=== PATIENT | female | born 1960 | race Caucasian/White ===

== ENCOUNTER 2020-03-10 00:38 | Emergency (ER) | payer OTHER ==
[2020-03-10 00:53] VITALS: BP 126/65; PULSE 90; TEMP 98.4; BMI 31.1
--- OUTSIDE RECORDS SUMMARY | 2020-03-10 01:09 | XMS ---
:1960 Author Organization [facility] Care Team Providers Name Role Phone JEB TENORIO Unavailable Unavailable Menla, Tod Unavailable Unavailable Menla, Tod Unavailable Unavailable Menla, Tod Unavailable Unavailable Menla, Tod Unavailable Unavailable Menla, Tod Unavailable Unavailable Menla, Tod Unavailable Unavailable Sergio Irvin DPM Unavailable Unavailable AurYoav jackson DPM Unavailable Unavailable AurYoav jackson DPM Unavailable Unavailable KARLA KHOURY Unavailable Unavailable ZUNASSIGNED Unavailable Unavailable MENLA TOD Unavailable Unavailable SOFIA Unavailable Unavailable Sofia Unavailable Unavailable Sofia Unavailable Unavailable Sofia Unavailable Unavailable Sofia Unavailable Unavailable ZUNASSIGNED@, Unavailable Unavailable Re-disclosure Warning The records that you are about to access may contain information from federally- assisted alcohol or drug abuse programs. If such information is present, then the following federally mandated warning applies: This information has been disclosed to you from records protected by federal confidentiality rules (42 CFR part 2). The federal rules prohibit you from making any further disclosure of this information unless further disclosure is expressly permitted by the written consent of the person to whom it pertains or as otherwise permitted by 42 CFR part 2. A general authorization for the release of medical or other information is NOT sufficient for this purpose. The Federal rules restrict any use of the information to criminally investigate or prosecute any alcohol or drug abuse patient.The records that you are about to access may contain highly sensitive health information, the redisclosure of which is protected by Article 27-F of the [facility] Public Health law. If you continue you may haveaccess to information: Regarding HIV / AIDS; Provided by facilities licensed or operated by the [facility] Office of Mental Health; or Provided by the [facility] Office for People With Developmental Disabilities. If such information is present, then the following [facility] mandated warning applies: This information has been disclosed to you from confidential records which are protected by state law. State law prohibits you from making any further disclosure of this information without the specific written consent of the person to whom it pertains, or as otherwise permitted by law. Any unauthorized further disclosure in violation of state law may result in a fine or custodial sentence or both. A general authorization for the release of medical or other information is NOT sufficient authorization for further disclosure. Allergies and Adverse Reactions Type Description Substance Reaction Status Data Source(s ) Drug allergy dulaglutide dulaglutide Active [facility] ([facility]) Family History Family Member Family Member Family Member Date of Description Data Source(s) Name Gender Status Status Unknown Female Problem 02/09/2015 [facility] ([facility] (finding) 12:00:00 AM [facility]) Unknown Female Problem 02/09/2015 [facility] ([facility] (finding) 12:00:00 [facility]) Encounters Encounter Providers Location Date Indications Data Source(s ) Outpatient Attender: 03/23/2020 [facility] DIANAIGNEDAdmi 10:13:00 Medical C enter tter: AM EDT ZUNASSIGNEDRefe rrer: [id number] ZUNASSIGNED@, Outpatient Admitter: 03/23/2020 [facility] [id number] 12:00:00 Medical Center ZASHLYSSIGNED@,Re AM EDT rene: [id number] ZUNASSIGNED@, Outpatient Attender: 03/09/2020 [facility] DAINAIGNEDAdmi 10:23:00 Medical C enter tter: AM EDT ZUNASSIGNEDRefe rrer: [id number] ZUNASSIGNED@, Outpatient Attender: TOD Mcqueen 03/09/2020 [facility] MENLESVIA 09:13:00 Medical Center MIKEAdmitter: AM EDT TOD MENLA MIKEReferrer: TOD WERNERLESVIA TOD Outpatient Admitter: 03/09/2020 [facility] [id number] 12:00:00 Medical Center ZUNASSIGNED@,Re AM EDT rene: [id number] ZUNASSIGNED@, Outpatient Attender: 03/07/2020 [facility] ZUNASSIGNEDAdmi 04:01:00 Medical C enter tter: PM EDT ZUNASSIGNEDRefe rrer: [id number] ZUNASSIGNED@, Outpatient Admitter: 03/07/2020 [facility] 12:00:00 Medical Center ZUNASSIGNED@,Re AM EDT rene: [id number] ZUNASSIGNED@, Outpatient Attender: TOD Mcqueen 02/24/2020 [facility] 09:34:00 [facility] MIKEAdmitter: AM EDT TOD Clemonsrer: TOD BARON OutpatientOFFICE/OUT [place]: [place] [address] [place] 02/24/2020 [facility] ([facility] PATIENT VISIT, EST Sofia 09:34:00 [facility] EDT - Center) 02/24/2020 09:34:00 AM EDT Outpatient Attender: 02/24/2020 [facility] ZUNASSIGNEDAdmi 09:32:00 Medical C enter tter: AM EDT ZUNASSIGNEDRefe rrer: [id number] ZUNASSIGNED@, Outpatient Admitter: 02/24/2020 [facility] 12:00:00 [facility] AlfredoUNASSIGNED@,Re AM EDT rene: [id number] ZUNASSIGNED@, Outpatient Attender: TOD Mcqueen 02/21/2020 [facility] 09:59:00 [facility] MIKEAdmitter: AM EDT TOD Huangferrer: TOD BARON OutpatientOFFICE/OUT Attender: [address] 02/21/2020 [facility] ([facility] PATIENT VISIT, EST Sofia 09:59:00 [facility] EDT - Center) 02/21/2020 09:59:00 AM EDT Outpatient Attender: 02/21/2020 [facility] ZUNASSIGNEDAdmi 09:30:00 Medical C enter tter: AM EDT ZUNASSIGNEDRefe rrer: [id number] ZUNASSIGNED@, Outpatient Admitter: 02/21/2020 [facility] [id number] 12:00:00 Medical Center ZUNASSIGNED@,Re AM EDT rene: [id number] ZUNASSIGNED@, Outpatient 02/17/2020 [facility] 11:45:00 Medical Center AM EDT Outpatient 02/17/2020 [facility] 12:00:00 Medical Center AM [place] [address] [place] 02/06/2020 [facility] 03:[facility]:00 [facility] PM EDT - Center) 02/06/2020 03:52:00 PM EDT Outpatient Attender: TOD Mcqueen 02/03/2020 [facility] phs MENLA 09:59:00 Medical Center MIKEAdmitter: AM EDT TOD Huangferrer: TOD BARON OutpatientWell Attender: [address] 02/03/2020 [facility] ([facility] Visit, Sofia 09:59:00 [facility] Est,40-64years AM EDT - Center) 02/03/2020 09:59:00 AM EDT Outpatient 02/03/2020 [facility] 09:27:00 Medical Center AM EDT Outpatient 02/03/2020 [facility] 12:00:00 Medical Center AM EDT Attender: Tod [address] Clinic 01/31/2020 [facility] ([facility]int Menla 04:18:00 [facility] PM EDT - Center) 01/31/2020 04:18:00 PM EDT Outpatient Attender: RUTH Mcqueen 01/17/2020 [facility] MEJIAAdmitter: 02:25:00 Medical Ce nter TOD ESTRELLA PM EDT MIKEReferrer: TOD BARON OutpatientOFFICE/OUT Attender: Ruth[address] 01/17/2020 [facility] ([facility] PATIENT VISIT, EST Sofia 02:25:00 [facility] EDT - Center) 01/17/2020 02:25:00 PM EDT Outpatient 01/17/2020 [facility] 11:34:00 Medical Center AM EDT Outpatient 01/17/2020 [facility] 12:00:00 Medical Center AM EDT Attender: Tod [address] Clinic 12/29/2019 [facility] ([facility]int Menla 01:45:00 [facility] PM EDT - Center) 12/29/2019 01:45:00 PM EDT Outpatient Attender: TOD Mcqeuen 10/27/2019 [facility] MENLA 03:18:00 [facility] MIKEAdmitter: PM EDT TOD Johnstonr: TOD BARON OutpatientOFFICE/OUT Attender: Ruth Alysia [facility] 10/27/2019 [facility] ([facility] PATIENT VISIT, EST Sofia 03:18:00 [facility] PM EDT - Center) 10/27/2019 03:18:00 PM EDT Outpatient 10/27/2019 [facility] 03:17:00 [facility] PM EDT Outpatient 10/27/2019 [facility] 12:00:00 [facility] AM EDT Outpatient 10/21/2019 [facility] 04:35:00 [facility] PM EDT Outpatient Attender: TOD Mcqueen 10/21/2019 [facility] MENLA 11:05:00 [facility] MIKEAdmitter: AM EDT TOD Johnstonr: TOD BARON OutpatientOFFICE/OUT Attender: [address] 10/21/2019 [facility] ([facility] PATIENT VISIT, EST Sofia 11:05:00 [facility] EDT - Center) 10/21/2019 11:05:00 AM EDT Outpatient 10/21/2019 [facility] 12:00:00 [facility] AM EDT Attender: Tod [facility] [facility] 10/19/2019 [facility] ([facility] Menla 02:48:00 [facility] PM EDT - Center) 10/19/2019 02:48:00 PM EDT Attender: [facility] 12:40:00 [facility] PM EDT - Center) 10/13/2019 12:40:00 PM EDT Attender: Tod [address] 09/26/2019 [facility] ([facility] Menla 03:31:00 [facility] PM EDT - Center) 09/26/2019 03:31:00 PM EDT Outpatient Attender: 09/01/2019 [id number] KARLA Mccauley 12:19:00 [facility] EFayeAdmitter: PM EDT [facility] KARLA KHOURY [id number] Outpatient Attender: TOD Mcqueen [facility]2019 [facility] ANDRADEEAdmitter: TOD 03:32:00 PM EDT edical Center SAMEER Johnstonr: TOD BARON OutpatientOFFICE/ Attender: Tod [facility] 08/29/2019 [facility] ([facility] OUTPATIENT VISIT, 03:32:00 PM EDT [facility] EST - 08/29/2019 Medical 03:32:00 PM EDT Center) Outpatient 08/29/2019 [facility] 03:29:00 PM EDT Medical C enter Outpatient 08/29/2019 [facility] 12:00:00 AM EDT Medical C enter [address] [address] [address] 08/17/2019 eCW1 ([facility] 12:00:00 AM EDT [facility] ) Outpatient Attender: TOD Mcqueen [facility] KHANdmitter: TOD 09:42:00 AM EDT edical [place] SAMEER Johnstonr: TOD BARON OutpatientOFFICE/ Attender: Ruth [address] 08/16/2019 [facility] ([facility] OUTPATIENT VISIT, Sofia 09:42:00 AM EDT [facility] EST - 08/16/2019 Medical 09:42:00 AM EDT Center) Outpatient 08/16/2019 [facility] 09:33:00 AM EDT Medical C enter Outpatient 08/16/2019 [facility] 12:00:00 AM EDT Medical C enter Outpatient Attender: RUTH Mcqueen 07/18/2019 [facility] PAOLAdmitter: RUTH 09:12:00 AM EST Medical Center MERISSAAReferrer: RUTH SOFIA OutpatientOFFICE/ Attender: Ruth [address] 07/18/2019 [facility] ([facility] OUTPATIENT VISIT, Sofia 09:12:00 AM EST [facility] EST - 07/18/2019 Medical 09:12:00 AM EST Center) Outpatient 07/18/2019 [facility] 09:10:00 AM EST Medical C enter Outpatient 07/18/2019 [facility] 09:09:00 AM EST Medical C enter Outpatient 07/18/2019 [facility] 12:00:00 AM EST Medical C enter Outpatient Attender: TOD Mcqueen 07/04/2019 Heike KHANdmitter: TOD 11:40:00 AM EST edical Center SAMEER Clemonsrer: TOD BARON OutpatientOFFICE/ Attender: Tod [facility] 07/04/2019 [facility] ([facility] OUTPATIENT VISIT, 11:40:00 AM EST [facility] EST - 07/04/2019 Medical 11:40:00 AM EST Center) Outpatient 07/04/2019 [facility] 09:06:00 AM EST Medical C enter Outpatient 07/04/2019 [facility] 12:00:00 AM EST Medical C enter Outpatient 06/08/2019 [facility] 03:12:00 PM EST Medical C enter Attender: Sergio [facility] 06/08/2019 [facility] Albaro DPM 08:33:00 AM EST Igor s - 06/08/2019 Medical 08:33:00 AM EST Center) Outpatient 06/08/2019 [facility] 12:00:00 AM EST Medical C enter Outpatient 05/30/2019 [facility] 10:07:00 AM EST Medical C enter Outpatient Attender: TOD Mcqueen 05/30/2019 Heike nita Cris MIKEAdmitter: TOD 09:21:00 AM EST edical Center SAMEER Clemonsrer: TOD BARON OutpatientOFFICE/ Attender: [facility] 05/30/2019 NE XT ([facility] OUTPATIENT VISIT, Sofia 09:21:00 AM EST [facility] EST - 05/30/2019 Medical 09:21:00 AM EST Center) Outpatient 05/30/2019 [facility] 12:00:00 AM EST Medical C enter Attender: Ruth [facility] 05/11/2019 [facility] ( [facility] 03:17:00 PM EST Cris - 05/11/2019 Medical 03:17:00 PM EST Center) Attender: Ruth [facility] 05/06/2019 [facility] ( [facility] 09:29:00 AM EST Cris - 05/06/2019 Medical 09:29:00 AM EST Center) Attender: Sergio [facility] 05/04/2019 [facility] (Chuck Vorao DPM 10:54:00 AM EST Igor s - 05/04/2019 Medical 10:54:00 AM EST Center) Outpatient Attender: JEB Mcqueen 05/02/2019 [facility] Mike ALVARADO 03:46:00 PM EST Medical C enter THEEANAdmitter: JEB RUSSReferrer: JEB RUSS Outpatient 04/29/2019 [facility] 09:45:00 AM EST Medical C enter Outpatient Attender: TOD Mcqueen 04/29/2019 Heike KHANdmitter: TOD 09:15:00 AM EST edical Center SAMEER Johnstonr: TOD BARON OutpatientOFFICE/ Attender: [place] [address] Clinic 04/29/2019 [facility] ([facility] OUTPATIENT VISIT, [facility] 09:15:00 AM EST [facility] EST - 04/29/2019 Medical 09:15:00 AM EST Center) Outpatient 04/29/2019 [facility] 12:00:00 AM EST Medical C enter Attender: [address] 04/28/2019 [facility] ( [facility] 06:18:00 PM EST [facility] - 04/28/2019 Medical 06:18:00 PM EST Center) Outpatient Attender: TOD Mcqueen 04/06/2019 Heike Villaritter: TOD 03:35:00 PM EST edical Center SAMEER Johnstonr: TOD BARON OutpatientOFFICE/ Attender: [address] 04/06/2019 [facility] ([facility] OUTPATIENT VISIT, [facility] 03:35:00 PM EST [facility] EST - 04/06/2019 Medical 03:35:00 PM EST Center) Outpatient 04/06/2019 [facility] 03:34:00 PM EST Medical C enter Outpatient 04/06/2019 [facility] 12:00:00 AM EST Medical C enter Outpatient 03/30/2019 [facility] 03:36:00 PM EST Medical C enter Outpatient Attender: TOD Mcqueen 03/30/2019 Heike KHANdmitter: TOD 08:51:00 AM EST edical Center SAMEER Hsu: TOD BARON OutpatientOFFICE/ Attender: [address] 03/30/2019 [facility] ([facility] OUTPATIENT VISIT, [facility] 08:51:00 AM EST [facility] EST - 03/30/2019 Medical 08:51:00 AM EST Center) Outpatient 03/30/2019 [facility] 12:00:00 AM EST Medical C enter Outpatient 03/28/2019 [facility] 11:27:00 AM EST Medical C enter Outpatient 03/28/2019 [facility] 12:00:00 AM EST Medical C enter Outpatient 02/23/2019 [facility] 02:38:00 PM EDT Medical C enter Outpatient Attender: TOD Mcqueen 02/23/2019 Heike KHANdmitter: TOD 10:30:00 AM EDT edical Center SAMEER Johnstonr: TOD BARON OutpatientOFFICE/ [place] [address] [place] 02/23/2019 [facility] ([facility] OUTPATIENT VISIT, Sofia 10:30:00 AM EDT [facility] EST - 02/23/2019 Medical 10:30:00 AM EDT Center) Outpatient 02/23/2019 [facility] 12:00:00 AM EDT Medical C enter Outpatient Attender: TOD Mcqueen 02/08/2019 Heike KHANdmitter: TOD 03:39:00 PM EDT edical [place] SAMEER Johnstonr: TOD BARON OutpatientOFFICE/ [place]: [place] [address] [place] 02/08/2019 [facility] ([facility] OUTPATIENT VISIT, Sofia 03:39:00 PM EDT [facility] EST - 02/08/2019 Medical 03:39:00 PM EDT Center) Outpatient 02/08/2019 [facility] 03:37:00 PM EDT Medical C enter Outpatient 02/08/2019 [facility] 12:00:00 AM EDT Medical C enter Immunizations Vaccine Date Status Description Data Source(s) As of January 1999, 10/27/2019 completed Hep B, adult, 3 dos e [facility] ([facility] a 2-dose hepatitis B 12:00:00 AM [facility] schedule for EDT Center) adolescents (11-15 year olds) was FDA approved for [employer]'s Recombivax HB adult formulation. Use code 43 for the 2-dose. This code should be used for any use of standard adult formulation of hepatitis B vaccine. Source: New Immunization Record As of January 1999, 05/30/2019 12:00:00 completed Hep B, adult , 3 [facility] ([facility] a 2-dose hepatitis B AM EST dose [facility] schedule for Center) adolescents (11-15 year olds) was FDA approved for [employer]ck's Recombivax HB adult formulation. Use code 43 for the 2-dose. This code should be used for any use of standard adult formulation of hepatitis B vaccine. Source: New Immunization Record As of January 1999, 04/29/2019 12:00:00 completed Hep B, adult , 3 [facility] ([facility] a 2-dose hepatitis B AM EST dose [facility] schedule for [place]) adolescents (11-15 year olds) was FDA approved for Merck's Recombivax HB adult formulation. Use code 43 for the 2-dose. This code should be used for any use of standard adult formulation of hepatitis B vaccine. Source: New Immunization Record New in 2011. 03/30/2019 12:00:00 completed Influenza, Injectable , [facility] ([facility] IIV4 AM EST Quadrivalent [facility]) Source: New Immunization Record Medications Medication Brand Start Product Dose Route Administrative Pharmacy [facility] Indications Reaction Description Data Name Date Form Instructions Instructions Source(s) Famotidine famoti .00 ORAL active take 1 N EXTGEN 40 MG Oral dine 2020 {tabl tablet by (Sa int Tablet 40 mg 12:00: et} oral route [facility] famotidine tablet 00 AM every day a t Medical 40 mg EDT bedtime Center) tablet 120 ACTUAT Dulera 2.00 RESPIR active 120 AC TUAT [facility] formoterol 100 2020 {puff ATORY formoterol ( [facility] fumarate mcg-5 12:00: } (INHAL fumarate [facility] 0.005 mcg/ac 00 AM ATION) 0.005 Medical MG/ACTUAT / tuatio EDT MG/ACTUAT / Center) mometasone n HFA mometasone furoate 0.1 aeroso furoate 0.1 MG/ACTUAT l MG/ACTUAT Metered inhale Metered Dose Dose r Inhaler Inhaler [Dulera] [Dulera] Dulera 100 mcg-5 mcg/actuati on HFA aerosol inhaler Albuterol 1 albute 02/20/ 0.5 RESPIR active inhal e 0.5 [facility] MG/ML rol 2020 mL ATORY milliliter (Saint Inhalant sulfat 12:00: (INHAL by Evgeny hs Solution e 00 AM ATION) nebulization Medical albuterol concen EDT route 4 Cente r) sulfate trate times every concentrate 2.5 day 2.5 mg/0.5 mg/0.5 mL solution mL for soluti nebulizatio on for n nebuli zation Steglatro ertugl ORAL active ertuglifl ozi [facility]EXT[facility] 15 mg iflozi 2019 {tabl n 15 MG Oral (Sa int tablet n 15 12:00: et} Tablet Cris MG 00 AM [Steglatro] Medical Oral EDT Center) Tablet Prednisone predni 02/20/ active take 2 N EXTGEN 20 MG Oral sone 2019 tablets for (S aint Tablet 20 mg 12:00: 4days Cris prednisone tablet 00 AM Medica l 20 mg EDT Center) tablet Guaifenesin Tussin ORAL active take 1 [facility]EXT[facility] 400 MG Oral 400 mg 2019 {tabl tablet by (Saint Tablet tablet 12:00: et} oral route [facility] Tussin 400 00 AM every 4 Medic al mg tablet EDT hours as Center ) needed [place] nebuli 02/20/ active use q4-q6hr [facility] Choice zer 2019 as needed (Saint Nebulizer and 12:00: Cris compre 00 AM Medical ssor EDT Center) Aerochamber inhale 02/20/ active use NE XTGEN Plus Z Stat r, 2020 [id number] (S aint spacer assist 12:00: with MDI as [facility] device 00 AM needed Medical s EDT Center) empaglifloz Jardia ORAL active empagli flozi NEXT[facility] in 25 MG nce 25 2019 {tabl n 25 MG Oral (Saint Oral Tablet mg 12:00: et} Tablet [facility] [Jardiance] tablet 00 AM [Jardiance ] Medical Jardiance EDT Center) 25 mg tablet sitagliptin Januvi ORAL active sitagli ptin [facility]EXTGEN 100 MG Oral a 100 2019 {tabl 100 MG Oral (Saint Tablet mg 12:00: et} Tablet Cris [Januvia] tablet 00 AM [Januvia] Or dical Januvia 100 EDT Center) mg tablet atorvastati atorva ORAL active take 1 [facility]EXTGEN n 40 MG statin 2020 {tabl tablet by (Ian nt Oral Tablet 40 mg 12:00: et} oral route Cris atorvastati tablet 00 AM every day Medical n 40 mg EDT Center) tablet Lisinopril lisino ORAL active take 1 N EXTGEN 5 MG Oral pril 5 2019 {tabl tablet by (S aint Tablet mg 12:00: et} oral route Evgeny hs lisinopril tablet 00 AM every day M edical 5 mg tablet EDT Center) Metformin metfor ORAL active take 1 NE XTGEN hydrochlori min 2019 {tabl tablet by (S aint de 1000 MG 1,000 12:00: et} oral route 2 Cris Oral Tablet mg 00 AM times every Medical metformin tablet EDT day with Cent er) 1,000 mg morning and tablet evening meals Levothyroxi Synthr ORAL active levothy roxin NEXTGEN ne Sodium oid 88 2019 {tabl e sodium (Sa int 0.088 MG mcg 12:00: et} 0.088 MG Evgeny hs Oral Tablet tablet 00 AM Oral Table t Medical [Synthroid] EDT [Synthroid] C enter) Synthroid 88 mcg tablet Aspirin 81 Aspir- 02/02/ active take 1 N EXTGEN MG Delayed 81 mg 2020 tablet by (Sa int Release tablet 12:00: oral route [facility] Oral Tablet ,delay 00 AM every day Medical Aspir-81 mg ed EDT Center) tablet,dahlia releas yed release e glimepiride glimep ORAL active take 1 [facility]EXTGEN 4 MG Oral iride 2019 {tabl tablet by (Sa int Tablet 4 mg 12:00: et} oral route Evgeny hs glimepiride tablet 00 AM every day Medical 4 mg tablet EDT Center) 200 ACTUAT Proven RESPIR active [id number] [facility]EXTGEN Albuterol til 2019 {puff ATORY 200 ACTUAT (S aint 0.09 HFA 90 12:00: } (INHAL albuterol [facility] MG/ACTUAT mcg/ac 00 AM ATION) 0.09 Medic al Metered tuatio EDT MG/ACTUAT Cente r) Dose n Metered Dose Inhaler aeroso Inhaler [Proventil] l [Proventil] Proventil inhale HFA 90 r mcg/actuati on aerosol inhaler 0.5 ML Trulic 02/02/ 0.50 SUBCUT complet 0.5 ML NE XTGEN dulaglutide ity 2020 mL ANEOUS ed dulaglutide (Saint 3 MG/ML 1.5 12:00: 3 MG/ML Cris Auto-Inject mg/0.5 00 AM Auto-Injec to Medical or mL EDT r Center) [Trulicity] subcut [Trulicity] Trulicity aneous 1.5 mg/0.5 pen mL inject subcutaneou or s pen injector Azithromyci azithr ORAL complet take 2 NEXTGEN n 500 MG omycin 2019 {tabl ed tablet by (Sa int Oral Tablet 500 mg 12:00: et} oral rout e Cris azithromyci tablet 00 AM every day Medical n 500 mg EDT for 3 days Cente r) tablet Prednisone predni 01/16/ complet take 2t bs [facility]EXT[facility] 20 MG Oral sone 2020 ed once a day (Sa int Tablet 20 mg 12:00: with food Evgeny hs prednisone tablet 00 AM Medica l 20 mg EDT Center) tablet benzonatate benzon ORAL complet take 1 NEXTGEN 200 MG Oral atate 2019 {caps ed capsule by (Saint Capsule 200 mg 12:00: ule} oral route 3 Cris benzonatate capsul 00 AM times ever y Medical 200 mg e EDT day as Center) capsule needed for cough montelukast Singul ORAL active montelu kast NEXTGEN 10 MG Oral air 10 2019 {tabl 10 MG Oral (Saint Tablet mg 12:00: et} Tablet Cris [Singulair] tablet 00 AM [Singulair ] Medical Singulair EDT Center) 10 mg tablet Contour blood 10/23/ active use twice NE XTGEN Test Strips sugar 2020 daily (Saint diagno 12:00: Cris stic 00 AM Medical EDT Center) 28 ACTUAT Floven 00 RESPIR complet 28 ACT UAT NEXTGEN Fluticasone t 2019 {puff ATORY ed Fluticasone (Saint propionate Diskus 12:00: } (INHAL propiona te Cris 0.1 100 00 AM ATION) 0.1 Medical MG/ACTUAT mcg/ac EDT MG/ACTUAT Marcie ter) Dry Powder tuatio Dry Powder Inhaler n Inhaler [Flovent] powder [Flovent] Flovent for Diskus 100 inhala mcg/actuati tion on powder for inhalation Flonase flutic .00 NASAL active fluticason e NEXTGEN Allergy asone 2019 {spra propionate (Ian nt Relief 50 propio 12:00: y} 0.05 Igor s mcg/actuati mingo 00 AM MG/ACTUAT Me dical on nasal 0.05 EDT Metered Dose [address] ter) spray,suspe MG/ACT Nasal [place] nsion UAT [Flonase] Metere d Dose Nasal [place] 200 ACTUAT Proven RESPIR complet [id number] NEXTGEN Albuterol til 2019 {puff ATORY ed 200 ACTUAT (S aint 0.09 HFA 90 12:00: } (INHAL albuterol Mike phs MG/ACTUAT mcg/ac 00 AM ATION) 0.09 Medic al Metered tuatio EDT MG/ACTUAT Cente r) Dose n Metered Dose Inhaler aeroso Inhaler [Proventil] l [Proventil] Proventil inhale HFA 90 r mcg/actuati on aerosol inhaler glimepiride glimep . ORAL complet take 1 NEXTGEN 4 MG Oral iride 2019 {tabl ed tablet by (Sa int Tablet 4 mg 12:00: et} oral route Evgeny hs glimepiride tablet 00 AM every day Medical 4 mg tablet EDT Center) Aspirin 81 Aspir- take 1 NEXTGEN MG Delayed 81 mg 2019 ed tablet by (Sa int Release tablet 12:00: oral route Shell sephs Oral Tablet ,delay 00 AM every day Medical Aspir-81 mg ed EDT Center) tablet,dahlia releas yed release e Contour blood use twice N EXTGEN Test Strips sugar 2019 ed daily (Saint diagno 12:00: Cris stic 00 AM Medical EDT Center) Flonase Flutic .00 NASAL complet Fluticaso ne NEXTGEN Allergy asone 2019 spray ed propionate (Ian nt Relief 50 propio 12:00: 0.05 Igor s mcg/actuati mingo 00 AM MG/ACTUAT Me dical on nasal 0.05 EDT Metered Dose [address]) spray,suspe MG/ACT Nasal [place] nsion UAT [Flonase] Metere d Dose Nasal [place] Medication administered onsite Levothyroxine Synthroid 10/21/2019 1.00 ORAL completed levothyroxine NEXTGEN Sodium 0.088 88 mcg 12:00:00 AM {tablet} sodium 0.088 (Saint MG Oral Tablet tablet EDT MG Oral Tablet Cris [Synthroid] [Synthroid] M [facility] Synthroid [address] [place] [address]) mcg tablet Metformin metformin 10/21/2019 1.00 ORAL completed take 1 tablet NEXTGEN hydrochloride 1,000 mg 12:00:00 AM {tablet} by oral route (Saint 1000 MG Oral tablet EDT 2 times ev rula Cris Tablet day with Medical metformin morning and Marcie ter) 1,000 mg evening meals tablet Flonase Fluticason 10/21/2019 2.00 NASAL completed Fluticasone NEXTGEN Allergy Relief e 12:00:00 AM spray pr opionate (Saint 50 propionate EDT 0.05 MG/ACTUAT Cris mcg/actuation 0.05 Metered Dos e Medical nasal MG/ACTUAT Nasal [place] Ce nter) spray,suspensi Metered [Flonas e] on Dose Nasal [place] sitagliptin Januvia 10/21/2019 1.00 ORAL completed sitagliptin NEXTGEN 100 MG Oral 100 mg 12:00:00 AM {tablet} 100 MG Oral (Saint Tablet tablet EDT Tablet Cris [Januvia] [Januvia] Medic al Januvia 100 mg Cente r) tablet Lisinopril 5 lisinopril 10/21/2019 1.00 ORAL completed take 1 tablet NEXTGEN MG Oral Tablet 5 mg 12:00:00 AM {tablet} by oral route (Saint lisinopril 5 tablet EDT every day Cris mg tablet [facility]) glimepiride 4 glimepirid 10/13/2019 1.00 ORAL completed take 1 tablet NEXTGEN MG Oral Tablet e 4 mg 12:00:00 AM {tbl} by oral route (Saint glimepiride 4 tablet EDT every day Cris mg tablet Medical [place]) sitagliptin Januvia 10/13/2019 1.00 ORAL completed sitagliptin NEXTGEN 100 MG Oral 100 mg 12:00:00 AM {tbl} 100 MG Oral (Saint Tablet tablet EDT Tablet Cris [Januvia] [Januvia] Medic al Januvia 100 mg Cente r) tablet Levothyroxine Synthroid 10/13/2019 1.00 ORAL completed Levothyroxine NEXTGEN Sodium 0.088 88 mcg 12:00:00 AM {tbl} So dium 0.088 (Saint MG Oral Tablet tablet EDT MG Oral Tablet Cris [Synthroid] [Synthroid] [facility] Synthroid 88 [place]) mcg tablet Lisinopril 5 lisinopril 10/13/2019 1.00 ORAL completed take 1 tablet NEXTGEN MG Oral Tablet 5 mg 12:00:00 AM {tbl} by oral route ([facility] lisinopril 5 tablet EDT every day Cris mg tablet Medical [place]) atorvastatin atorvastat 10/13/2019 1.00 ORAL completed take 1 tablet NEXTGEN 40 MG Oral in 40 mg 12:00:00 AM {tablet} by oral route ([facility] Tablet tablet EDT every day [place] s atorvastatin Medical 40 mg tablet [place]) 200 ACTUAT Proventil 10/13/2019 2 {puff} RESPI completed [id number] 200 NEXTGEN Albuterol 0.09 HFA 90 12:00:00 AM RATOR ACTUAT (Saint MG/ACTUAT mcg/actuat EDT Y Albuterol 0.09 [facility] Metered Dose ion (INHA MG/ACTUAT [facility] Inhaler aerosol LATIO Metered Dose Center) [Proventil] inhaler N) Inhaler Proventil HFA [Proventil] 90 mcg/actuation aerosol inhaler Acetaminophen Mapap 08/29/2019 2.00 ORAL completed Acetaminophen NEXTGEN 500 MG Oral (acetamino 12:00:00 AM {capsule} 500 MG Oral (Saint Capsule phen) 500 EDT Capsule Mike phs [Mapap] Mapap mg capsule [Mapa p] Medical (acetaminophen Cente r) ) 500 mg capsule Azithromycin azithromyc 08/29/2019 2.00 ORAL completed take 2 tablet NEXTGEN 250 MG Oral in 250 mg 12:00:00 AM {tbl} by oral route (Saint Tablet tablet EDT every day for [facility] se[facility]s azithromycin 1 day then 1 Medical 250 mg tablet tablet (250 Center) mg) by oral route once daily for 4 days Phenazopyridin Pyridium 08/16/2019 1.00 ORAL completed Phenazopyridin NEXTGEN e 200 mg 12:00:00 AM {tbl} e (Heike t hydrochloride tablet EDT hydrochlo ride Cris 200 MG Oral 200 MG Oral M edical Tablet Tablet Center) [Pyridium] [Pyridium] Pyridium 200 mg tablet Medication administered onsite 28 ACTUAT Flovent Diskus 08/16/2019 1.00 RESPIRATORY complet ed 28 ACTUAT NEXTGEN Fluticasone 100 12:00:00 AM {puff} (INHALATION) Fluticasone (Saint propionate 0.1 mcg/actuation EDT p ropionate Cris MG/ACTUAT Dry powder for 0.1 Medical Powder Inhaler inhalation MG/A CTUAT [place]) [Flovent] Dry Powder Flovent Diskus Inhaler 100 [Flovent] mcg/actuation powder for inhalation benzonatate benzonatate 08/16/2019 1.00 ORAL completed take 1 NEXTGEN 200 MG Oral 200 mg capsule 12:00:00 AM {capsul capsule by (Saint Capsule EDT e} oral route 3 [facility] benzonatate times every M edical 200 mg capsule day as Marcie ter) needed for cough Phenazopyridin Pyridium 200 08/16/2019 1.00 ORAL completed Phenazopyrid NEXTGEN e mg tablet 12:00:00 AM {tbl} ine (S aint hydrochloride EDT hydrochlori d Cris 200 MG Oral e 200 MG Medi silas Tablet Oral Tablet Center ) [Pyridium] [Pyridium] Pyridium 200 mg tablet Linzess 72 mcg linaclotide 07/18/2019 1.00 ORAL active linaclotide NEXTGEN capsule 0.072 MG Oral 12:00:00 AM {capsul 0.072 MG (Saint Capsule EST e} Oral Capsule [facility] [Linzess] Medical [place]) Shingrix (PF) 0.5 ML 07/04/2019 0.50 mL INTRAMUSCULAR active 0.5 ML NEXTGEN 50 mcg/0.5 mL varicella 12:00:00 AM varicella (Saint intramuscular zoster virus EST zos ter virus Cris suspension, glycoprotein glyco protein Medical kit E, recombinant E, Cente r) 0.1 MG/ML recombinant Injection 0.1 MG/ML Injection [Shingrix] POLYETHYLENE Miralax 17 07/04/2019 1.00 ORAL completed POLYETHYLENE NEXTGEN GLYCOL 3350 gram oral 12:00:00 AM packet GLYCOL 3350 (Saint 142 MG/ML Oral powder packet EST 1 7000 MG Cris Solution Powder for Medic al [Miralax] Oral Center) Miralax 17 Solution gram oral [Miralax] powder packet POLYETHYLENE Miralax 17 07/04/2019 17 G ORAL completed POLYETHYLENE NEXTGEN GLYCOL 3350 gram/dose oral 12:00:00 AM GLYCOL 3350 (Saint 142 MG/[place] [address] MG Cris Solution Powder for Medic al [Miralax] Oral Center) Miralax 17 Solution gram/dose oral [Miralax] powder benzonatate benzonatate 07/04/2019 1.00 ORAL completed take 1 NEXTGEN 200 MG Oral 200 mg capsule 12:00:00 AM {capsul capsule by (Saint Capsule EST e} oral route 3 Mike phs benzonatate times every M edical 200 mg capsule day as Marcie ter) needed for cough pantoprazole pantoprazole 05/30/2019 1 {tbl} ORAL completed take 1 NEXTGEN 20 MG Delayed 20 mg 12:00:00 AM tab let by (Saint Release Oral tablet,delayed EST or al route Cris Tablet release every day Medic al pantoprazole Center) 20 mg tablet,delayed release cetirizine Zyrtec 10 mg 05/30/2019 1.00 ORAL active take 1 NEXTGEN hydrochloride tablet 12:00:00 AM {tablet tablet by (Saint 10 MG Oral EST } oral route [facility] Tablet Zyrtec every day M edical 10 mg tablet Center) montelukast 10 Singulair 10 05/30/2019 1.00 ORAL completed montelukast NEXTGEN MG Oral Tablet mg tablet 12:00:00 AM {tbl} 10 MG Oral (Saint [Singulair] EST Tablet Igor s Singulair 10 [Singulair] Medical mg tablet Center) nabumetone 500 nabumetone 500 05/30/2019 1.00 ORAL completed take 1 NEXTGEN MG Oral Tablet mg tablet 12:00:00 AM {tbl} tablet by (Saint nabumetone 500 EST oral route 2 Cris mg tablet times every Med ical day Center) benzonatate benzonatate 05/30/2019 1.00 ORAL completed take 1 NEXTGEN 200 MG Oral 200 mg capsule 12:00:00 AM {capsul capsule by (Saint Capsule EST e} oral route 3 Mike phs benzonatate times every M edical 200 mg capsule day as Marcie ter) needed for cough gabapentin 300 gabapentin 300 05/30/2019 1 ORAL completed take 1 NEXTGEN MG Oral mg capsule 12:00:00 AM {capsul c apsule by (Saint Capsule EST e} oral route Igor s gabapentin 300 every day Medical mg capsule Center) Amoxicillin amoxicillin 05/11/2019 completed take NEXTGEN 500 MG Oral 500 mg tablet 12:00:00 AM 2tablets TID (Saint Tablet EST for 14 dyas Igor s amoxicillin Medical 500 mg tablet Center ) Amoxicillin amoxicillin 05/06/2019 completed take 2 NEXTGEN 500 MG Oral 500 mg tablet 12:00:00 AM tablet by (Saint Tablet EST oral route Cris amoxicillin every 12 Medi silas 500 mg tablet [id number] s Center) pantoprazole pantoprazole 05/02/2019 1 {tbl} ORAL completed take 1 NEXTGEN 20 MG Delayed 20 mg 12:00:00 AM tab let by (Saint Release Oral tablet,delayed EST or al route Cris Tablet release every day Medic al pantoprazole Center) 20 mg tablet,delayed release Lactobacillus Probiotic 10 05/02/2019 completed take as NEXTGEN acidophilus billion cell 12:00:00 AM directed (Saint [id number] capsule EST Evgeny hs UNT Oral Medical Capsule Center) Probiotic 10 billion cell capsule gabapentin 100 gabapentin 100 04/29/2019 1 ORAL completed take 1 NEXTGEN MG Oral mg capsule 12:00:00 AM {capsul c apsule by (Saint Capsule EST e} oral route 3 Mike phs gabapentin 100 times ever y Medical mg capsule day Center) bismuth Pylera 140 04/29/2019 3.00 ORAL completed bismuth NEXTGEN subcitrate 140 mg-125 mg-125 12:00:00 AM {capsul subcitrate (Saint MG / mg capsule EST e} 140 MG / Evgeny hs Metronidazole Metronidazo l Medical 125 MG / e 125 MG / Cente r) tetracycline tetracycline hydrochloride hydrochlori d 125 MG Oral e 125 MG Capsule Oral Capsule [Pylera] [Pylera] Pylera 140 mg-125 mg-125 mg capsule Cyclobenzaprin cyclobenzaprin 04/06/2019 1 {tbl} ORAL comple asmita take 1 NEXTGEN e e 5 mg tablet 12:00:00 AM tabl et by (Saint hydrochloride EST oral route 2 Cris 5 MG Oral times every Med ical Tablet day Center) cyclobenzaprin e 5 mg tablet Naproxen 500 naproxen 500 04/06/2019 1.00 ORAL completed take 1 NEXTGEN MG Delayed mg 12:00:00 AM {tbl} tablet by ([facility] Release Oral tablet,delayed EST or al route 2 Cris Tablet release times every Med ical naproxen [address]) mg food tablet,delayed release montelukast 10 montelukast 10 03/30/2019 1.00 ORAL completed take 1 NEXTGEN MG Oral Tablet mg tablet 12:00:00 AM {tbl} tablet (Saint montelukast 10 EST (10MG) by Cris mg tablet oral route Medi silas every day in Center) the evening Medication administered onsite Guaifenesin Tussin 400 03/30/2019 1.00 ORAL completed take 1 NEXTGEN 400 MG Oral mg tablet 12:00:00 AM {tbl} tablet by (Saint Tablet Tussin EST oral route Cris 400 mg tablet every 4 Me dical hours as Center) needed 8 HR Mapap 03/30/2019 1 {tbl} ORAL completed 8 HR NEXTGEN Acetaminophen Arthritis 12:00:00 AM Acetaminop (Saint 650 MG Pain 650 mg EST hen 650 MG Cris Extended tablet,exte Extended Medical Release Oral nded Release Cent er) Tablet [Mapap] release Oral Mapap Tablet Arthritis Pain [Mapap] 650 mg tablet,extende d release benzonatate benzonatate 03/30/2019 1.00 ORAL completed take 1 NEXTGEN 200 MG Oral 200 mg 12:00:00 AM {capsul c apsule by (Saint Capsule capsule EST e} oral route [facility] benzonatate 3 times Medic al 200 mg capsule every day Center) as needed for cough icosapent Vascepa 1 03/30/2019 2.00 ORAL completed icosapent NEXTGEN ethyl 1000 MG gram 12:00:00 AM {capsul e thyl 1000 (Saint Oral Capsule capsule EST e} MG Oral J osephs [Vascepa] Capsule Medical Vascepa 1 gram [Vascepa] Center) capsule montelukast 10 Singulair 02/23/2019 1.00 ORAL completed montelukas NEXTGEN MG Oral Tablet 10 mg 12:00:00 AM {tbl} t 10 MG (Saint [Singulair] tablet EDT Oral Igor s Singulair 10 Tablet Medic al mg tablet [Singulair Cent er) ] glimepiride 4 glimepiride 02/08/2019 1.00 ORAL completed take 1 NEXTGEN MG Oral Tablet 4 mg tablet 12:00:00 AM {tbl} tablet by (Saint glimepiride 4 EDT oral route Cris mg tablet every day [facility]) Aspirin 81 MG Aspir-81 mg 02/08/2019 1.00 ORAL completed take 1 NEXTGEN Delayed tablet,dahlia 12:00:00 AM {tbl} ta blet by (Saint Release Oral yed release EDT oral route Cris Tablet every day Medical Aspir-81 mg [place]) tablet,delayed release Levothyroxine Synthroid 02/08/2019 1.00 ORAL completed Levothyrox NEXTGEN Sodium 0.088 88 mcg 12:00:00 AM {tbl} in e Sodium (Saint MG Oral Tablet tablet EDT 0.088 MG Cris [Synthroid] Oral Medical Synthroid 88 Tablet Cente r) mcg tablet [Synthroid ] Metformin metformin 02/08/2019 1.00 ORAL completed take 1 NEXTGEN hydrochloride 1,000 mg 12:00:00 AM {tbl} tablet by (Saint 1000 MG Oral tablet EDT oral route Cris Tablet 2 times Medical metformin every day Cente r) 1,000 mg with tablet morning and evening meals 200 ACTUAT Proventil 02/08/2019 2 RESPIRATO completed [id number] NEXTGEN Albuterol 0.09 HFA 90 12:00:00 AM {puff} RY 200 ACTUAT (Saint MG/ACTUAT mcg/actuati EDT (INHALATI Alb uterol Cris Metered Dose on aerosol ON) 0.09 M edical Inhaler inhaler MG/ACTUAT Cent er) [Proventil] Metered Proventil HFA Dose 90 Inhaler mcg/actuation [Proventil aerosol ] inhaler Lisinopril 5 lisinopril 02/08/2019 1.00 ORAL completed take 1 NEXTGEN MG Oral Tablet 5 mg tablet 12:00:00 AM {tbl} tablet by (Saint lisinopril 5 EDT oral route J osephs mg tablet every day [facility]) sitagliptin Januvia 100 02/08/2019 1.00 ORAL completed sitaglipti NEXTGEN 100 MG Oral mg tablet 12:00:00 AM {tbl} n 100 MG (Saint Tablet EDT Oral Cris [Januvia] Tablet Medical Januvia 100 mg [Januvia] [place]) tablet atorvastatin atorvastati 02/08/2019 1.00 ORAL completed take 1 NEXTGEN 40 MG Oral n 40 mg 12:00:00 AM {tbl} tab let by (Saint Tablet tablet EDT oral route Evgeny hs atorvastatin every day M edical 40 mg tablet [place]) pantoprazole pantoprazol 02/08/2019 1 {tbl} ORAL completed take 1 NEXTGEN 20 MG Delayed e 20 mg 12:00:00 AM t ablet by (Saint Release Oral tablet,dahlia EDT oral route Cris Tablet yed release every day Medical pantoprazole [place]) 20 mg tablet,delayed release Levothyroxine Synthroid 12/01/2018 1.00 ORAL completed Levothyrox NEXTGEN Sodium 0.088 88 mcg 12:00:00 AM {tbl} in e Sodium (Saint MG Oral Tablet tablet EDT 0.088 MG Cris [Synthroid] Oral Medical Synthroid 88 Tablet Cente r) mcg tablet [Synthroid ] Lisinopril 5 lisinopril 12/01/2018 1.00 ORAL completed take 1 NEXTGEN MG Oral Tablet 5 mg tablet 12:00:00 AM {tbl} tablet by (Saint lisinopril 5 EDT oral route J osephs mg tablet every day [facility]) sitagliptin Januvia 100 12/01/2018 1.00 ORAL completed sitaglipti NEXTGEN 100 MG Oral mg tablet 12:00:00 AM {tbl} n 100 MG (Saint Tablet EDT Oral Cris [Januvia] Tablet Medical Januvia 100 mg [Januvia] [place]) tablet Metformin metformin 12/01/2018 1.00 ORAL completed take 1 NEXTGEN hydrochloride 1,000 mg 12:00:00 AM {tbl} tablet by (Saint 1000 MG Oral tablet EDT oral route Cris Tablet 2 times Medical metformin every day Cente r) 1,000 mg with tablet morning and evening meals Aspirin 81 MG Aspir-81 81 12/01/2018 1.00 ORAL completed take 1 NEXTGEN Delayed mg 12:00:00 AM {tbl} tablet by (Saint Release Oral tablet,dahlia EDT oral route Cris Tablet yed release every day Medical Aspir-81 81 mg Cente r) tablet,delayed release atorvastatin atorvastati 12/01/2018 1.00 ORAL completed take 1 NEXTGEN 40 MG Oral n 40 mg 12:00:00 AM {tbl} tab let by (Saint Tablet tablet EDT oral route Evgeny hs atorvastatin every day M edical 40 mg tablet Center) glimepiride 4 glimepiride 12/01/2018 1.00 ORAL completed take 1 NEXTGEN MG Oral Tablet 4 mg tablet 12:00:00 AM {tbl} tablet by (Saint glimepiride 4 EDT oral route Cris mg tablet every day [facility]) pantoprazole pantoprazol 12/01/2018 1 {tbl} ORAL completed take 1 NEXTGEN 20 MG Delayed e 20 mg 12:00:00 AM t ablet by (Saint Release Oral tablet,dahlia EDT oral route Cris Tablet yed release every day Medical pantoprazole [place]) 20 mg tablet,delayed release amoxicillin 4 10/19/2018 ORAL completed ta ke by NEXTGEN 500 (amoxicilli 12:00:00 AM oral r oute (Saint mg-clarithromy n 500 MG EDT 2 time s Cris willow 500 Oral every day Medical mg-lansoprazol Capsule) / 1 do se Center) e 30 mg combo 2 pack (clarithrom ycin 500 MG Oral Tablet) / 2 (lansoprazo le 30 MG Delayed Release Oral Capsule) Pack Lactobacillus Probiotic 10/06/2018 completed take as NEXTGEN acidophilus 10 billion 12:00:00 AM directed (Saint [id number] cell EDT Cris UNT Oral capsule Medical Capsule [place]) Probiotic 10 billion cell capsule 200 ACTUAT Proventil 07/22/2018 2 RESPIRATO completed [id number] NEXTGEN Albuterol 0.09 HFA 90 12:00:00 AM {puff} RY 200 ACTUAT (Saint MG/ACTUAT mcg/actuati EST (INHALATI Alb uterol Cris Metered Dose on aerosol ON) 0.09 M edical Inhaler inhaler MG/ACTUAT Cent er) [Proventil] Metered Proventil HFA Dose 90 Inhaler mcg/actuation [Proventil aerosol ] inhaler Acetaminophen Mapap 07/22/2018 2.00 ORAL completed Acetaminop NEXTGEN 500 MG Oral (acetaminop 12:00:00 AM {capsul hen 500 MG (Saint Capsule hen) 500 mg EST e} Oral Evgeny hs [Mapap] Mapap capsule Capsule Medical (acetaminophen [Mapap] Ce nter) ) 500 mg capsule Famotidine 20 famotidine 03/15/2018 1.00 ORAL completed take 1 NEXTGEN MG Oral Tablet 20 mg 12:00:00 AM {tbl} t ablet by (Saint famotidine [address] e Cris mg tablet 2 times Medical every day Center) POLYETHYLENE Miralax 17 11/23/2017 1.00 ORAL completed POLYETHYLE NEXTGEN GLYCOL 3350 gram oral 12:00:00 AM packet NE GLYCOL (Saint 142 MG/ML Oral powder EDT 3350 170 00 Cris Solution packet MG Powder Medi silas [Miralax] for Oral Center ) Miralax 17 Solution gram oral [Miralax] powder packet sennosides, senna 8.6 11/23/2017 2.00 ORAL completed take 2 NEXTGEN ASSISTED 8.6 MG mg tablet 12:00:00 AM {tbl} t ablet by (Saint Oral Tablet EDT oral route [facility] se[facility]s senna 8.6 mg every day M edical tablet as needed Center) for constipati on Contour Test blood sugar 11/23/2017 completed use twice NEXTGEN Strips diagnostic 12:00:00 AM daily ([facility]) Insurance Providers Payer name Policy type Policy ID Covered Covered democrat's Policy P francia / Coverage democrat ID relationship to [facility] ormation type miller AFF[employer] [id number] SP [id number] AFFINITY O [id number] 01 [id number] HEALTH PLAN Problems, Conditions, and Diagnoses Code Display Name Description Problem Type Effective Data Sour ce(s) Dates K59.00 [id number] Constipation, Problem 08/17/2019 eCW1 (Saint unspecified 12:00:00 AM Cris Medi silas constipation type EDT Practic e PC) A04.8 [id number] H. pylori Problem 08/17/2019 eCW1 (Saint infection 12:00:00 AM Cris Medic al EDT Practice PC) Z79.84 residential [facility] Diagnosis 02/24/2020 [facility] (current) use of (CURRENT) USE OF 09:34:00 AM [facility] oral hypoglycemic ORAL HYPOGLYCEMIC EDT drugs DRUGS E11.9 Type 2 diabetes TYPE 2 DIABETES Diagnosis 02/24/2020 Heike Lynch mellitus without MELLITUS WITHOUT 09:34:00 AM [facility] complications COMPLICATIONS EDT J45.909 Unspecified UNSPECIFIED Diagnosis 02/24/2020 [facility] Igor woods asthma, ASTHMA, 09:34:00 AM Medical [place] uncomplicated UNCOMPLICATED EDT J45.901 Unspecified asthma UNSPECIFIED ASTHMA Diagnosis 0 [facility] with (acute) WITH (ACUTE) 09:59:00 AM Medical C enter exacerbation EXACERBATION EDT Z00.00 Encounter for ENCNTR FOR GENERAL Diagnosis 02/03/2020 Ian Lynch general adult ADULT MEDICAL EXAM 09:59:00 AM [facility] medical W/O ABNORMAL EDT examination FINDINGS without abnormal findings E03.9 Hypothyroidism, HYPOTHYROIDISM, Diagnosis 02/03/2020 Heike Lynch unspecified UNSPECIFIED 09:59:[address] EDT I10 Essential ESSENTIAL Diagnosis 02/03/2020 [facility] (primary) (PRIMARY) 09:59:00 AM Medical [place] hypertension HYPERTENSION EDT Z71.82 Exercise EXERCISE Diagnosis 01/17/2020 [facility] counseling COUNSELING 02:25:00 PM Medical Cente r EDT Z71.3 Dietary counseling DIETARY COUNSELING Diagnosis 0 [facility] and surveillance AND SURVEILLANCE 02:25:00 PM [facility] EDT Z68.33 Body mass index BODY MASS INDEX Diagnosis 01/17/2020 Heike Lynch (BMI) 33.0-33.9, (BMI) 33.0-33.9, 02:25:00 PM [facility] adult ADULT EDT J06.9 Acute upper ACUTE UPPER Diagnosis 01/17/2020 [facility] Igor woods respiratory RESPIRATORY 02:25:[address] infection, INFECTION, EDT unspecified UNSPECIFIED E08.65 Diabetes mellitus DIABETES DUE TO Diagnosis 01/17/2020 Sa mai Lynch due to underlying UNDERLYING 02:25:00 PM Medica l Center condition with CONDITION W EDT hyperglycemia HYPERGLYCEMIA R07.9 Chest pain, CHEST PAIN, Diagnosis 10/27/2019 [facility] Igor woods unspecified UNSPECIFIED 03:18:[address] EDT Z23 Encounter for ENCOUNTER FOR Diagnosis 10/27/2019 [facility] immunization IMMUNIZATION 03:18:00 PM Medical C enter EDT Z68.32 Body mass index BODY MASS INDEX Diagnosis 10/21/2019 Heike Lynch (BMI) 32.0-32.9, (BMI) 32.0-32.9, 11:05:00 AM [facility] adult ADULT EDT Z03.818 Encounter for ENCNTR FOR OBS FOR Diagnosis 09/01/2019 [place] observation for SUSP EXPSR TO OTH 12:19:00 PM [facility] suspected exposure BIOL[employer] AGENTS RULED EDT Care to other [employer] biological agents ruled out R30.0 Dysuria DYSURIA Diagnosis 08/16/2019 [facility] 09:42:00 AM Medical [facility] EDT K59.09 Other constipation OTHER CONSTIPATION Diagnosis 0 [facility] Cris 09:12:00 AM Medical Cente r EST B96.81 Helicobacter HELICOBACTER Diagnosis 07/18/2019 [facility] Mike phs pylori [H. pylori] PYLORI THE 09:12:00 AM [facility] as the cause of CAUSE OF DISEASES EST diseases CLASSD ELSWHR classified elsewhere R05 Cough COUGH Diagnosis 05/30/2019 [facility] 09:21:00 AM Medical Cente r EST Z12.11 Encounter for ENCOUNTER FOR Diagnosis 05/30/2019 Saint [facility] screening for SCREENING FOR 09:21:00 AM Medical Center malignant neoplasm MALIGNANT NEOPLASM EST of colon OF COLON R20.2 Paresthesia of PARESTHESIA OF Diagnosis 05/30/2019 [facility] Cris skin SKIN 09:21:00 AM Medical Cente r EST M54.9 Dorsalgia, DORSALGIA, Diagnosis 05/02/2019 [facility] unspecified UNSPECIFIED 03:46:[address] EST M54.5 Low back pain LOW BACK PAIN Diagnosis 04/29/2019 [facility] 09:15:00 AM Medical Cente r EST Z51.89 Encounter for ENCOUNTER FOR Diagnosis 03/30/2019 [facility] other specified OTHER SPECIFIED 08:51:00 AM Med ical Center aftercare AFTERCARE EST E78.2 Mixed MIXED Diagnosis 03/30/2019 [facility] Cost[facility] hyperlipidemia HYPERLIPIDEMIA 08:51:00 AM Medic al Center EST E08.40 Diabetes mellitus DIABETES DUE TO Diagnosis 03/30/2019 int Cris due to underlying UNDERLYING 08:51:00 AM Medica l Center condition with CONDITION W EST diabetic DIABETIC NEUROP, neuropathy, UNSP unspecified L65.9 Nonscarring hair NONSCARRING HAIR Diagnosis 02/23/2019 [facility] loss, unspecified LOSS, UNSPECIFIED 10:30:00 AM Medical Center EDT Z12.31 Encounter for ENCNTR SCREEN Diagnosis 02/08/2019 [facility] screening MAMMOGRAM FOR 03:39:00 PM Medical Ce nter mammogram for MALIGNANT NEOPLASM EDT malignant neoplasm OF BREAST of breast Surgeries/Procedures Procedure Description Date Indications Data Source(s) OFFICE/OUTPATIENT VISIT, 02/24/2020 NEX TGEN ([facility] EST 12:00:00 AM EDT [facility] - 02/24/2020 Center) 12:00:00 AM EDT OFFICE/OUTPATIENT VISIT, 02/21/2020 NEX TGEN ([facility] EST 12:00:00 AM EDT [facility] - 02/21/2020 Center) 12:00:00 AM EDT Well Visit, Est,40-64years 02/03/2020 N EXTGEN ([facility] 12:00:00 AM EDT [facility] - 02/03/2020 [place]) 12:00:00 AM EDT OFFICE/OUTPATIENT VISIT, 01/17/2020 NEX TGEN ([facility] EST 12:00:00 AM EDT [facility] - 01/17/2020 [place]) 12:00:00 AM EDT OFFICE/OUTPATIENT VISIT, 10/27/2019 NEX TGEN ([facility] EST 12:00:00 AM EDT [facility] - 10/27/2019 Center) 12:00:00 AM EDT HEP B VACCINE, ADULT, IM 10/27/2019 NEX TGEN ([facility] 12:00:00 AM EDT [facility] - 10/27/2019 Center) 12:00:00 AM EDT Immunization 10/27/2019 NEXTGEN ([facility] 12:00:00 AM EDT [facility] dical - 10/27/2019 Center) 12:00:00 AM EDT OFFICE/OUTPATIENT VISIT, 10/21/2019 NEX TGEN ([facility] EST 12:00:00 AM EDT [facility] - 10/21/2019 Center) 12:00:00 AM EDT OFFICE/OUTPATIENT VISIT, 08/29/2019 NEX TGEN ([facility] EST 12:00:00 AM EDT [facility] - 08/29/2019 Center) 12:00:00 AM EDT OFFICE/OUTPATIENT VISIT, 08/16/2019 NEX TGEN ([facility] EST 12:00:00 AM EDT [facility] - 08/16/2019 [place]) 12:00:00 AM EDT OFFICE/OUTPATIENT VISIT, 07/18/2019 NEX TGEN ([facility] EST 12:00:00 AM EST [facility] - 07/18/2019 Center) 12:00:00 AM EST OFFICE/OUTPATIENT VISIT, 07/04/2019 NEX TGEN ([facility] EST 12:00:00 AM EST [facility] silas - 07/04/2019 Center) 12:00:00 AM EST OFFICE/OUTPATIENT VISIT, 05/30/2019 NEX TGEN ([facility] EST 12:00:00 AM EST [facility] silas - 05/30/2019 Center) 12:00:00 AM EST HEP B VACCINE, ADULT, IM 05/30/2019 NEX TGEN ([facility] 12:00:00 AM EST [facility] silas - 05/30/2019 Center) 12:00:00 AM EST Immunization 05/30/2019 NEXTGEN ([facility] 12:00:00 AM EST [facility] dical - 05/30/2019 Center) 12:00:00 AM EST OFFICE/OUTPATIENT VISIT, 04/29/2019 NEX TGEN ([facility] EST 12:00:00 AM EST [facility] - 04/29/2019 Center) 12:00:00 AM EST HEP B VACCINE, ADULT, IM 04/29/2019 NEX TGEN ([facility] 12:00:00 AM EST [facility] - 04/29/2019 Center) 12:00:00 AM EST Immunization 04/29/2019 NEXTGEN ([facility] 12:00:00 AM EST [facility] dical - 04/29/2019 Center) 12:00:00 AM EST ROUTINE VENIPUNCTURE 04/29/2019 NEXTGEN ([facility] 12:00:00 AM EST [facility] - 04/29/2019 Center) 12:00:00 AM EST OFFICE/OUTPATIENT VISIT, 04/06/2019 NEX TGEN ([facility] EST 12:00:00 AM EST [facility] - 04/06/2019 Center) 12:00:00 AM EST OFFICE/OUTPATIENT VISIT, 03/30/2019 NEX TGEN ([facility] EST 12:00:00 AM EST [facility] - 03/30/2019 Center) 12:00:00 AM EST Influenza, Injectable, 3 03/30/2019 NEX TGEN ([facility] Yrs Or Older 12:00:00 AM EST [facility] - 03/30/2019 Center) 12:00:00 AM EST Immunization 03/30/2019 NEXTGEN ([facility] 12:00:00 AM EST [facility] dical - 03/30/2019 Center) 12:00:00 AM EST OFFICE/OUTPATIENT VISIT, 02/23/2019 NEX TGEN ([facility] 12:00:00 AM EDT [facility] - 02/23/2019 Center) 12:00:00 AM EDT OFFICE/OUTPATIENT VISIT, 02/08/2019 NEX TGEN ([facility] 12:00:00 AM EDT [facility] - 02/08/2019 [place]) 12:00:00 AM EDT Results ID Date Data Source [id number] 01/25/2020 05:15:00 PM EDT [facility] Name Value Range Interpretation Code Description Data Carmen rce(s) Supporting Document(s ) SARS-COV-2 [facility] RNA RESP Diagnostics QL SONJA+PROBE This lab was ordered by [facility] BLAISE CORTES and reported by [employer] BENJAMÍN. ID Date Data Source Hormones.[id number] 01/17/2020 03:50:00 PM EDT [facility] Name Value Range Interpretation Description Data Sup porting Code Source(s) Document(s ) Thyroxine (T4) 0.78-2.1 <content [facility] free 9 styleCode="Giacomo Cris [Mass/volume] d">T4 Free Medical in Serum or </content>1.19 Center Plasma NG/DL<content styleCode="Aixa lics"> (0.78-2.19 NG/DL)</conten t> Thyrotropin 0.465-4. <content [facility] [Units/volume] 68 styleCode="Giacomo Cris in Serum or d">Thyroid Medical Plasma by Stimulating Center Detection Hormone limit <= 0.05 </content>2.25 mIU/L MIU/L<content styleCode="Aixa lics"> (0.465-4.68 MIU/L)</conten t> ID Date Data Source HematologyRou.[id number] 01/17/2020 03:50:00 PM EDT [facility] 0400 Name Value Range Interpretation Description Data Sup porting Code Source(s) Document(s ) Erythrocytes 4.0-5.1 <content [facility] [#/volume] in styleCode="Bold Cris Blood by ">Red Blood Medical Automated count Cell Count Center </content>4.38 MCUMM<content styleCode="Ital ics"> (4.0-5.1 MCUMM)</content > Leukocytes 4.4-11.0 <content [facility] [#/volume] in styleCode="Bold Cris Blood by ">White Blood Medical Automated count Cell Count Center </content>6.16 KCUMM<content styleCode="Ital ics"> (4.4-11.0 KCUMM)</content > Hemoglobin 12.3-16. <content [facility] [Mass/volume] in 0 styleCode="Bold Cris Blood ">Hemoglobin Medical </content>12.9 Center G/DL<content styleCode="Ital ics"> (12.3-16.0 G/DL)</content> Hematocrit 36.0-46. <content [facility] [Volume 0 styleCode="Bold Cris Fraction] of ">Hematocrit Medical Blood by </content>38.2 Center Automated count %<content styleCode="Ital ics"> (36.0-46.0 %)</content> Erythrocyte mean 80.0-100 <content [facility] corpuscular .0 styleCode="Bold Cris volume [Entitic ">Mean Medical volume] by Corpuscular Center Automated count Volume </content>87.2 FL<content styleCode="Ital ics"> (80.0-100.0 FL)</content> Erythrocyte mean 26.0-34. <content [facility] corpuscular 0 styleCode="Bold Cris hemoglobin ">Mean Medical [Entitic mass] Corposcular Center by Automated Hemoglobin count </content>29.5 PG<content styleCode="Ital ics"> (26.0-34.0 PG)</content> Erythrocyte 11.5-14. <content [facility] distribution 5 styleCode="Bold Cris width [Ratio] by ">Red Cell Medical Automated count Distribution Center Width </content>12.0 %<content styleCode="Ital ics"> (11.5-14.5 %)</content> Erythrocyte mean 32.0-37. <content [facility] corpuscular 0 styleCode="Bold Cris hemoglobin ">Mean Corpus. Medical concentration Hgb Center [Mass/volume] by Concentration Automated count (MCHC) </content>33.8 G/DL<content styleCode="Ital ics"> (32.0-37.0 G/DL)</content> Lymphocytes 24.0-44. <content Saint [#/volume] in 0 styleCode="Bold Cris Blood by ">Lymphocyte Medical Automated count </content>25.5 Center %<content styleCode="Ital ics"> (24.0-44.0 %)</content> Neutrophils 36-66 <content Saint [#/volume] in styleCode="Bold Cris Blood by ">Neutrophil Medical Automated count </content>58.5 Center %<content styleCode="Ital ics"> (36-66 %)</content> UNK 1.6-7.3 <content [facility] styleCode="Bold Cris ">Neutrophil Medical Count Center </content>3.60 KCUMM<content styleCode="Ital ics"> (1.6-7.3 KCUMM)</content > Platelets 130-400 <content Saint [#/volume] in styleCode="Bold Cris Blood by ">Platelet Medical Automated count Count Center </content>292 KCUMM<content styleCode="Ital ics"> (130-400 KCUMM)</content > Platelet mean 8.0-11.0 <content [facility] volume [Entitic styleCode="Bold Cris volume] in Blood ">Mean Platelet Medical by Automated Volume Center count </content>11.0 FL<content styleCode="Ital ics"> (8.0-11.0 FL)</content> UNK 1.0-4.8 <content [facility] styleCode="Bold Cris ">Lymphocyte Medical Count Center </content>1.57 KCUMM<content styleCode="Ital ics"> (1.0-4.8 KCUMM)</content > UNK 0.2-0.9 <content [facility] styleCode="Bold Cris ">Monocyte Medical Count Center </content>0.46 KCUMM<content styleCode="Ital ics"> (0.2-0.9 KCUMM)</content > Monocytes 3.0-10.0 <content Saint [#/volume] in styleCode="Bold Cris Blood by ">Monocyte Medical Automated count </content>7.5 Center %<content styleCode="Ital ics"> (3.0-10.0 %)</content> Eosinophils 0-5.0 Above high <content Saint [#/volume] in normal styleCode="Bold Cris Blood by ">Eosinophil Medical Automated count </content>7.1 % Center H<content styleCode="Ital ics"> (0-5.0 %)</content> UNK 0.0-0.6 <content [facility] styleCode="Bold Cris ">Eosinophil Medical Count Center </content>0.44 KCUMM<content styleCode="Ital ics"> (0.0-0.6 KCUMM)</content > UNK 0.0-0.3 <content Saint styleCode="Bold Cris ">Basophil Medical Count Center </content>0.07 KCUMM<content styleCode="Ital ics"> (0.0-0.3 KCUMM)</content > UNK 0.0 <content Saint styleCode="Bold Cris ">Nucleated Red Medical Blood Cell Center Count </content>0.00 KCUMM<content styleCode="Ital ics"> (0.0 KCUMM)</content > UNK 0-0.1 <content Saint styleCode="Bold Cris ">Immature Medical Granulocyte Center Count </content>0.02 KCUMM<content styleCode="Ital ics"> (0-0.1 KCUMM)</content > Basophils 0.0-1.0 Above high <content Saint [#/volume] in normal styleCode="Bold Cris Blood by ">Basophil Medical Automated count </content>1.1 % Center H<content styleCode="Ital ics"> (0.0-1.0 %)</content> UNK 0 <content Saint styleCode="Bold Cris ">Nucleated Red Medical Blood Cell Center </content>0.0 /100<content styleCode="Ital ics"> (0 /100)</content> UNK < 1 <content [facility] styleCode="Bold Cirs ">Immature Medical Granulocyte Center Ratio </content>0.3 %<content styleCode="Ital ics"> (< 1 %)</content> ID Date Data Source GFR(Creatinine).[id number] 01/17/2020 03:50:00 PM EDT [facility] 0-0400 Name Value Range Interpretation Code Description Data Carmen rce(s) Supporting Document(s ) UNK > 60 <content [facility] styleCode="Bold"> Medical Cent er EGFR </content>68 GFR<content styleCode="Italic s"> (> 60 GFR)</content> ID Date Data Source BRITTANEY.[id number] 01/17/2020 03:50:00 PM EDT [facility] -0400 Name Value Range Interpretation Description Data Sup porting Code Source(s) Document(s ) UNK Not Established <content [facility] styleCode="Bold Cris ">Microalbumin Medical </content>0.4 Center mg/dL<content styleCode="Ital ics"> (Not Established mg/dL)</content > UNK 4.2-5.8 Above high normal <content [facility] styleCode="Bold Cris ">Hemoglobin Medical A1C Center </content>11.8 % H<content styleCode="Ital ics"> (4.2-5.8 %)</content> ID Date Data Source [facility].[id number] 01/17/2020 03:50:00 PM EDT [facility] Name Value Range Interpretation Description Data Sup porting Code Source(s) Document(s ) Potassium 3.5-5.3 <content [facility] [Moles/volume] styleCode="Giacomo Cris in Serum or d">Potassium Medical Plasma </content>4.2 Center MEQ/L<content styleCode="Aixa lics"> (3.5-5.3 MEQ/L)</conten t> Sodium 137-145 Below low normal <content [facility] [Moles/volume] styleCode="Giacomo Cris in Serum or d">Sodium Medical Plasma </content>135 Center MEQ/L L<content styleCode="Aixa lics"> (137-145 MEQ/L)</conten t> Creatinine 0.5-1.3 <content [facility] [Mass/volume] styleCode="Giacomo Cris in Serum or d">Creatinine Medical Plasma </content>0.9 Center MG/DL<content styleCode="Aixa lics"> (0.5-1.3 MG/DL)</conten t> UNK 7-17 <content [facility] styleCode="Giacomo Cris d">BUN Medical </content>14 Center MG/DL<content styleCode="Aixa lics"> (7-17 MG/DL)</conten t> Carbon 22-30 <content Saint dioxide, total styleCode="Giacomo Cris [Moles/volume] d">Carbon Medical in Serum or Dioxide Center Plasma </content>24 MEQ/L<content styleCode="Aixa lics"> (22-30 MEQ/L)</conten t> Glucose 74-106 Above high normal <content [facility] [Mass/volume] styleCode="Giacomo Cris in Serum or d">Glucose Medical Plasma </content>313 Center MG/DL H<content styleCode="Aixa lics"> (74-106 MG/DL)</conten t> Chloride 98-107 <content [facility] [Moles/volume] styleCode="Giacomo Cris in Serum or d">Chloride Medical Plasma </content>100 Center MEQ/L<content styleCode="Aixa lics"> (98-107 MEQ/L)</conten t> Calcium 8.4-10.2 <content [facility] [Mass/volume] styleCode="Giacomo Cris in Serum or d">Calcium Medical Plasma </content>9.7 Center MG/DL<content styleCode="Aixa lics"> (8.4-10.2 MG/DL)</conten t> UNK > 60 <content Saint styleCode="Giacomo Cris d">EGFR Medical </content>68 Center GFR<content styleCode="Aixa lics"> (> 60 GFR)</content> ID Date Data Source Hormones.[id number] 10/21/2019 12:11:00 PM EDT [facility] Name Value Range Interpretation Description Data Sup porting Code Source(s) Document(s ) Thyrotropin 0.465-4. <content [facility] [Units/volume] 68 styleCode="Giacomo Cris in Serum or d">Thyroid Medical Plasma by [facility] Detection Hormone limit <= 0.05 </content>1.32 mIU/L MIU/L<content styleCode="Aixa lics"> (0.465-4.68 MIU/L)</conten t> ID Date Data Source HematologyRou.[id number] 10/21/2019 12:11:00 PM EDT [facility] nt [facility] 0400 Name Value Range Interpretation Description Data Sup porting Code Source(s) Document(s ) Leukocytes 4.4-11.0 <content Saint [#/volume] in styleCode="Bold Cris Blood by ">White Blood Medical Automated count Cell Count Center </content>4.78 KCUMM<content styleCode="Ital ics"> (4.4-11.0 KCUMM)</content > Erythrocyte mean 80.0-100 <content [facility] corpuscular .0 styleCode="Bold Cris volume [Entitic ">Mean Medical volume] by Corpuscular Center Automated count Volume </content>86.2 FL<content styleCode="Ital ics"> (80.0-100.0 FL)</content> Hemoglobin 12.3-16. <content [facility] [Mass/volume] in 0 styleCode="Bold Cris Blood ">Hemoglobin Medical </content>12.8 Center G/DL<content styleCode="Ital ics"> (12.3-16.0 G/DL)</content> Hematocrit 36.0-46. <content [facility] [Volume 0 styleCode="Bold Cris Fraction] of ">Hematocrit Medical Blood by </content>38.1 Center Automated count %<content styleCode="Ital ics"> (36.0-46.0 %)</content> Erythrocytes 4.0-5.1 <content Saint [#/volume] in styleCode="Bold Cris Blood by ">Red Blood Medical Automated count Cell Count Center </content>4.42 MCUMM<content styleCode="Ital ics"> (4.0-5.1 MCUMM)</content > Platelets 130-400 <content Saint [#/volume] in styleCode="Bold Cris Blood by ">Platelet Medical Automated count Count Center </content>278 KCUMM<content styleCode="Ital ics"> (130-400 KCUMM)</content > Erythrocyte mean 26.0-34. <content [facility] corpuscular 0 styleCode="Bold Cris hemoglobin ">Mean Medical [Entitic mass] Corposcular Center by Automated Hemoglobin count </content>29.0 PG<content styleCode="Ital ics"> (26.0-34.0 PG)</content> Erythrocyte 11.5-14. <content [facility] distribution 5 styleCode="Bold Cris width [Ratio] by ">Red Cell Medical Automated count Distribution Center Width </content>13.1 %<content styleCode="Ital ics"> (11.5-14.5 %)</content> Erythrocyte mean 32.0-37. <content [facility] corpuscular 0 styleCode="Bold Cris hemoglobin ">Mean Corpus. Medical concentration Hgb Center [Mass/volume] by Concentration Automated count (MCHC) </content>33.6 G/DL<content styleCode="Ital ics"> (32.0-37.0 G/DL)</content> Platelet mean 8.0-11.0 <content [facility] volume [Entitic styleCode="Bold Cris volume] in Blood ">Mean Platelet Medical by Automated Volume Center count </content>10.8 FL<content styleCode="Ital ics"> (8.0-11.0 FL)</content> UNK 0 <content Saint styleCode="Bold Cris ">Nucleated Red Medical Blood Cell Center </content>0.0 /100<content styleCode="Ital ics"> (0 /100)</content> UNK 0.0 <content Saint styleCode="Bold Cris ">Nucleated Red Medical Blood Cell Center Count </content>0.00 KCUMM<content styleCode="Ital ics"> (0.0 KCUMM)</content > ID Date Data Source GFR(Creatinine).[id number] 10/21/2019 12:11:00 PM EDT [facility] 0-0400 Name Value Range Interpretation Code Description Data Carmen rce(s) Supporting Document(s ) UNK > 60 <content [facility] styleCode="Bold"> Medical Cent er EGFR </content>108 GFR<content styleCode="Italic s"> (> 60 GFR)</content> ID Date Data Source CHMROUTINECCDA.[id number] 10/21/2019 12:11:00 PM EDT [facility] -0400 Name Value Range Interpretation Description Data Sup porting Code Source(s) Document(s ) Magnesium 1.6-2.3 <content Saint [Mass/volume] styleCode="Giacomo Cris in Serum or d">Magnesium Medical Plasma </content>1.8 Center MG/DL<content styleCode="Aixa lics"> (1.6-2.3 MG/DL)</conten t> ID Date Data Source [facility].[id number] 10/21/2019 12:11:00 PM EDT [facility] Name Value Range Interpretation Description Data Sup porting Code Source(s) Document(s ) Potassium 3.5-5.3 <content [facility] [Moles/volume] styleCode="Giacomo Cris in Serum or d">Potassium Medical Plasma </content>4.2 Center MEQ/L<content styleCode="Aixa lics"> (3.5-5.3 MEQ/L)</conten t> Carbon 22-30 <content [facility] dioxide, total styleCode="Giacomo Cris [Moles/volume] d">Carbon Medical in Serum or Dioxide Center Plasma </content>26 MEQ/L<content styleCode="Aixa lics"> (22-30 MEQ/L)</conten t> UNK 7-17 <content Saint styleCode="Giacomo Cris d">BUN Medical </content>12 Center MG/DL<content styleCode="Aixa lics"> (7-17 MG/DL)</conten t> Chloride 98-107 <content [facility] [Moles/volume] styleCode="Giacomo Cris in Serum or d">Chloride Medical Plasma </content>102 Center MEQ/L<content styleCode="Aixa lics"> (98-107 MEQ/L)</conten t> Creatinine 0.5-1.3 <content [facility] [Mass/volume] styleCode="Giacomo Cris in Serum or d">Creatinine Medical Plasma </content>0.6 Center MG/DL<content styleCode="Aixa lics"> (0.5-1.3 MG/DL)</conten t> Sodium 137-145 <content [facility] [Moles/volume] styleCode="Giacomo Cris in Serum or d">Sodium Medical Plasma </content>138 Center MEQ/L<content styleCode="Aixa lics"> (137-145 MEQ/L)</conten t> Calcium 8.4-10.2 <content [facility] [Mass/volume] styleCode="Giacomo Cris in Serum or d">Calcium Medical Plasma </content>9.5 Center MG/DL<content styleCode="Aixa lics"> (8.4-10.2 MG/DL)</conten t> Glucose 74-106 Above high normal <content Saint [Mass/volume] styleCode="Giacomo Cris in Serum or d">Glucose Medical Plasma </content>337 Center MG/DL H<content styleCode="Aixa lics"> (74-106 MG/DL)</conten t> UNK > 60 <content [facility] styleCode="Giacomo Cris d">EGFR Medical </content>108 Center GFR<content styleCode="Iaxa lics"> (> 60 GFR)</content> ID Date Data Source [id number] 09/01/2019 12:00:00 AM EDT [facility] Name Value Range Interpretation Code Description Data Carmen rce(s) Supporting Document(s ) 2019-nCoV BARBAR RNA XXX SONJA+probe- Imp This lab was ordered by [facility] and reported by [employer]. ID Date Data Source Hormones.[id number] 08/16/2019 01:18:00 PM EDT [facility] Name Value Range Interpretation Description Data Sup porting Code Source(s) Document(s ) Thyroxine (T4) 0.78-2.1 <content [facility] free 9 styleCode="Giacomo Cris [Mass/volume] d">T4 Free Medical in Serum or </content>1.59 Center Plasma NG/DL<content styleCode="Aixa lics"> (0.78-2.19 NG/DL)</conten t> Thyrotropin 0.465-4. <content [facility] [Units/volume] 68 styleCode="Giacomo Cris in Serum or d">Thyroid Medical Plasma by [facility] Detection Hormone limit <= 0.05 </content>3.13 mIU/L MIU/L<content styleCode="Aixa lics"> (0.465-4.68 MIU/L)</conten t> ID Date Data Source GFR(Creatinine).[id number] 08/16/2019 01:18:00 PM EDT [facility] 0-0400 Name Value Range Interpretation Code Description Data Carmen rce(s) Supporting Document(s ) UNK > 60 <content [facility] styleCode="Bold"> Medical Cent er EGFR </content>108 GFR<content styleCode="Italic s"> (> 60 GFR)</content> ID Date Data Source CHMROUTINECCDA.[id number] 08/16/2019 01:18:00 PM EDT [facility] -0400 Name Value Range Interpretation Code Description Data Carmen rce(s) Supporting Document(s ) UNK 4.2-5.8 Above high normal <content [place] [facility] styleCode="Bold" Medical Cente r >Hemoglobin A1C </content>10.6 % H<content styleCode="Itali cs"> (4.2-5.8 %)</content> ID Date Data Source BMP.[id number] 08/16/2019 01:18:00 PM EDT [facility] Name Value Range Interpretation Description Data Sup porting Code Source(s) Document(s ) Carbon 22-30 <content [facility] dioxide, total styleCode="Giacomo Lynch [Moles/volume] d">Carbon Medical in Serum or Dioxide Center Plasma </content>25 MEQ/L<content styleCode="Aixa lics"> (22-30 MEQ/L)</conten t> Potassium 3.5-5.3 <content [facility] [Moles/volume] styleCode="Giacomo Costas in Serum or d">Potassium Medical Plasma </content>4.3 Center MEQ/L<content styleCode="Aixa lics"> (3.5-5.3 MEQ/L)</conten t> Chloride 98-107 <content [facility] [Moles/volume] styleCode="Giacomo Costas in Serum or d">Chloride Medical Plasma </content>102 Center MEQ/L<content styleCode="Aixa lics"> (98-107 MEQ/L)</conten t> Sodium 137-145 <content [facility] [Moles/volume] styleCode="Giacomo Costas in Serum or d">Sodium Medical Plasma </content>137 Center MEQ/L<content styleCode="Aixa lics"> (137-145 MEQ/L)</conten t> Calcium 8.4-10.2 <content [facility] [Mass/volume] styleCode="Giacomo Costas in Serum or d">Calcium Medical Plasma </content>10.1 Center MG/DL<content styleCode="Aixa lics"> (8.4-10.2 MG/DL)</conten t> UNK > 60 <content [facility] styleCode="Giacomo Cris d">EGFR Medical </content>108 Center GFR<content styleCode="Aixa lics"> (> 60 GFR)</content> Creatinine 0.5-1.3 <content [facility] [Mass/volume] styleCode="Giacomo Costas in Serum or d">Creatinine Medical Plasma </content>0.6 Center MG/DL<content styleCode="Aixa lics"> (0.5-1.3 MG/DL)</conten t> UNK 7-17 <content [facility] styleCode="Giacomo Cris d">BUN Medical </content>12 Center MG/DL<content styleCode="Aixa lics"> (7-17 MG/DL)</conten t> Glucose 74-106 Above high normal <content Saint [Mass/volume] styleCode="Giacomo Costas in Serum or d">Glucose Medical Plasma </content>323 Center MG/DL H<content styleCode="Aixa lics"> (74-106 MG/DL)</conten t> ID Date Data Source Urinalysis.[id number] 08/16/2019 10:46:00 AM EDT [facility] 0 Name Value Range Interpretation Description Data Sup porting Code Source(s) Document(s ) UNK CLEAR <content Saint styleCode="Giacomo Costas d">Urine Medical Clarity Center </content>MARIS R <content styleCode="Aixa lics"> (CLEAR )</content> Glucose NEGATIVE <content Saint [Mass/volume] styleCode="Giacomo Lynch in Urine by d">Urine Medical Test strip Glucose Center </content>250 MG/DL<content styleCode="Aixa lics"> (NEGATIVE MG/DL)</conten t> UNK NEGATIVE <content Saint styleCode="Giacomo Costas d">Urine Medical Bilirubin Center </content>NEGA TIVE <content styleCode="Aixa lics"> (NEGATIVE )</content> Color of Urine YELLOW <content Saint styleCode="Giacomo Costas d">Color, Medical Urine Center </content>YELL OW <content styleCode="Aixa lics"> (YELLOW )</content> Hemoglobin NEGATIVE <content Saint [Presence] in styleCode="Giacomo Lynch Urine by Test d">Urine Blood Medical strip </content>NEGA Center TIVE <content styleCode="Aixa lics"> (NEGATIVE )</content> pH of Urine by 4.5-8.0 <content [facility] Test strip styleCode="Giacomo Costas d">Urine pH Medical </content>5.5 Center <content styleCode="Aixa lics"> (4.5-8.0 )</content> Specific 1.015-1.02 <content [facility] gravity of 5 styleCode="Giacomo Lynch Urine by Test d">Urine Medical strip Specific Center [place] </content>1.02 5 <content styleCode="Aixa lics"> (1.015-1.025 )</content> Ketones NEGATIVE <content Saint [Mass/volume] styleCode="Giacomo Cris in Urine by d">Urine Medical Test strip Ketone Center </content>NEGA TIVE MG/DL<content styleCode="Iaxa lics"> (NEGATIVE MG/DL)</conten t> Urobilinogen 0.2-1.0 <content [facility] [Units/volume] styleCode="Giacomo Costas in Urine by d">Urine Medical Test strip Urobilinogen Center </content>0.2 MG/DL<content styleCode="Aixa lics"> (0.2-1.0 MG/DL)</conten t> Nitrite NEGATIVE <content [facility] [Presence] in styleCode="Giacomo Lynch Urine by Test d">Urine Medical strip Nitrite Center </content>NEGA TIVE <content styleCode="Aixa lics"> (NEGATIVE )</content> Protein NEGATIVE <content Saint [Mass/volume] styleCode="Giacomo Costas in Urine by d">Urine Medical Test strip Protein Center </content>NEGA TIVE MG/DL<content styleCode="Aixa lics"> (NEGATIVE MG/DL)</conten t> Leukocyte NEGATIVE <content [facility] esterase styleCode="Giacomo Lynch [Presence] in d">Urine Medical Urine by Test Leukocyte Center strip </content>NEGA TIVE <content styleCode="Aixa lics"> (NEGATIVE )</content> ID Date Data Source Microbiology.[id number] 08/16/2019 10:46:00 AM EDT [facility] 400 Name Value Range Interpretation Code Description Data Carmen rce(s) Supporting Document(s ) UNK <item><content [facility] styleCode="Bold"> Medical Cent er Culture Report </content>
<t able><tbody><tr>< td>Specimen Number:</td><td>[id number]</td></tr ><tr><td>Sample Collection Date/Time: </td><td> 0 10:46 AM</td></tr><tr>< td>Specimen Source:</td><td>U RINE BLADDER</td></tr> <tr><td>Urine Culture:</td><td> Collection Plate Date: 08/16/2019 14:35 </td></tr><tr><td >Culture Status:</td><td>F inal </td></tr><tr><td >Culture Report:</td><td>N O FURTHER WORKUP </td></tr><tr><td >Organism 1:</td><td>Gram-n egative eddie - Rn Liaison species </td></tr><tr><td >Organism 2:</td><td>STREPT OCOCCUS AGALACTIAE - (GROUP B) </td></tr></tbody ></table>
<ta ble border="2"><tbody ><tr><td></td><td >1</td><td>2</td> </tr><tr><td>Comm ent</td><td></td> <td></td></tr><tr ><td>Result Value</td><td>Gra m-negative eddie - Rn Liaison species </td><td>STREPTOC OCCUS AGALACTIAE - (GROUP B) </td></tr><tr><td >Result Status</td><td>Fi nal Result</td><td>Fi nal Result</td></tr>< tr><td></td><td>< /td><td></td></tr ></tbody></table> </item> UNK <item><content [facility] styleCode="Bold"> Medical Cent er Culture Status </content>
<t able><tbody><tr>< td>Specimen Number:</td><td>[id number]</td></tr ><tr><td>Sample Collection Date/Time: </td><td> 0 10:46 AM</td></tr><tr>< td>Specimen Source:</td><td>U RINE BLADDER</td></tr> <tr><td>Culture Status:</td><td>F inal </td></tr><tr><td >Culture Report:</td><td>N O FURTHER WORKUP </td></tr><tr><td >Urine Culture:</td><td> Collection Plate Date: 08/16/2019 14:35 </td></tr><tr><td >Organism 1:</td><td>Gram-n egative eddie - Rn Liaison species </td></tr><tr><td >Organism 2:</td><td>STREPT OCOCCUS AGALACTIAE - (GROUP B) </td></tr></tbody ></table>
<ta ble border="2"><tbody ><tr><td></td><td >1</td><td>2</td> </tr><tr><td>Comm ent</td><td></td> <td></td></tr><tr ><td>Result Value</td><td>Gra m-negative eddie - Rn Liaison species </td><td>STREPTOC OCCUS AGALACTIAE - (GROUP B) </td></tr><tr><td >Result Status</td><td>Fi nal Result</td><td>Fi nal Result</td></tr>< tr><td></td><td>< /td><td></td></tr ></tbody></table> </item> ID Date Data Source Stools.[id number] 07/05/2019 03:24:[address] [facility] Name Value Range Interpretation Description Data Sup porting Code Source(s) Document(s ) UNK Not Detected <content [facility] styleCode="Bold Medical ">H. Pylori Ag, Center Ql, Stool </content>Detec asmita <content styleCode="Ital ics"> (Not Detected )</content> ID Date Data Source CHMROUTINECCDA.[id number] 05/04/2019 12:46:00 PM EST [facility] -0500 Name Value Range Interpretation Description Data Sup porting Code Source(s) Document(s ) UNK Not Established <content [facility] styleCode="Bold Cris ">Microalbumin Medical </content>0.3 Center mg/dL<content styleCode="Ital ics"> (Not Established mg/dL)</content > ID Date Data Source Liver 04/29/2019 09:50:[address] [facility] Profile.[id number] Name Value Range Interpretation Description Data Sup porting Code Source(s) Document(s ) Alanine 7-30 <content [facility] aminotransferase styleCode="Bold"> Evgeny hs [Enzymatic Alanine Medical activity/volume] Aminotransferase Center in Serum or Plasma (ALT) </content>24 IU/L<content styleCode="Italic s"> (7-30 IU/L)</content> Bilirubin.total 0.2-1.3 <content [facility] [Mass/volume] in styleCode="Bold"> Evgeny hs Serum or Plasma Bilirubin Total Medical </content>0.3 Center MG/DL<content styleCode="Italic s"> (0.2-1.3 MG/DL)</content> Aspartate 14-36 <content [facility] aminotransferase styleCode="Bold"> Evgeny hs [Enzymatic Aspartate Medical activity/volume] Aminotransferase Center in Serum or Plasma (AST) </content>23 IU/L<content styleCode="Italic s"> (14-36 IU/L)</content> Alkaline 38-126 <content [facility] phosphatase styleCode="Bold"> Cris [Enzymatic Alkaline Medical activity/volume] Phosphatase (ALP) Cente r in Serum or Plasma </content>85 IU/L<content styleCode="Italic s"> (38-126 IU/L)</content> Albumin 3.5-5.0 <content [facility] [Mass/volume] in styleCode="Bold"> Evgeny hs Serum or Plasma Albumin Medical </content>4.3 Center G/DL<content styleCode="Italic s"> (3.5-5.0 G/DL)</content> ID Date Data Source LIPID.[id number] 04/29/2019 09:50:00 AM EST [facility] Name Value Range Interpretation Description Data Sup porting Code Source(s) Document(s ) UNK > 60 Below low normal <content [facility] styleCode="Giacomo Cris d">HDL- Medical Cholesterol Center </content>40 MG/DL L<content styleCode="Aixa lics"> (> 60 MG/DL)</conten t> Cholesterol -<200 <content [facility] [Mass/volume] in styleCode="Psychiatric Serum or Plasma d">Cholesterol Medical </content>101 Center MG/DL<content styleCode="Aixa lics"> (-<200 MG/DL)</conten t> Triglyceride < 150 <content [facility] [Mass/volume] in styleCode="Psychiatric Serum or Plasma d">Triglycerid [facility] </content>82 MG/DL<content styleCode="Aixa lics"> (< 150 MG/DL)</conten t> UNK < 100 <content [facility] styleCode="Giacomo Cris d">LDL-Cholest Medical luc Center </content>45 MG/DL<content styleCode="Aixa lics"> (< 100 MG/DL)</conten t> ID Date Data Source GFR(Creatinine).[id number] 04/29/2019 09:50:00 AM EST [facility] 0-0500 Name Value Range Interpretation Code Description Data Carmen rce(s) Supporting Document(s ) UNK > 60 <content [facility] styleCode="Bold"> Medical Cent er EGFR </content>109 GFR<content styleCode="Italic s"> (> 60 GFR)</content> ID Date Data Source CHMROUTINECCDA.[id number] 04/29/2019 09:50:00 AM SARINA Sosa [facility] -0500 Name Value Range Interpretation Description Data Sup porting Code Source(s) Document(s ) UNK >= 1.0 <content [facility] styleCode="Bold Medical ">AG Ratio Center </content>1.4 <content styleCode="Ital ics"> (>= 1.0 )</content> UNK 2.3-3.5 <content [facility] styleCode="Bold Medical ">Globulin Center </content>3.0 G/DL<content styleCode="Ital ics"> (2.3-3.5 G/DL)</content> Protein 6.3-8.2 <content [facility] [Mass/volum styleCode="Bold Medical e] in Serum ">Total Protein Center or Plasma </content>7.3 G/DL<content styleCode="Ital ics"> (6.3-8.2 G/DL)</content> UNK 4.2-5.8 Above high normal <content [facility] styleCode="Bold Medical ">Hemoglobin Center A1C </content>7.8 % H<content styleCode="Ital ics"> (4.2-5.8 %)</content> ID Date Data Source [facility].[id number] 04/29/2019 09:50:00 AM EST [facility] Name Value Range Interpretation Description Data Sup porting Code Source(s) Document(s ) Potassium 3.5-5.3 <content [facility] [Moles/volume] in styleCode="Bold"> [facility] Serum or Plasma Potassium Medical </content>4.3 Center MEQ/L<content styleCode="Italic s"> (3.5-5.3 MEQ/L)</content> Sodium 137-145 <content [facility] [Moles/volume] in styleCode="Bold"> [facility] Serum or Plasma Sodium Medical </content>139 Center MEQ/L<content styleCode="Italic s"> (137-145 MEQ/L)</content> UNK 7-17 <content [facility] styleCode="Bold"> [facility] BUN </content>14 Medical MG/DL<content Center styleCode="Italic s"> (7-17 MG/DL)</content> Creatinine 0.5-1.3 <content [facility] [Mass/volume] in styleCode="Bold"> Evgeny hs Serum or Plasma Creatinine Medical </content>0.6 Center MG/DL<content styleCode="Italic s"> (0.5-1.3 MG/DL)</content> Chloride 98-107 <content [facility] [Moles/volume] in styleCode="Bold"> Mike phs Serum or Plasma Chloride Medical </content>104 Center MEQ/L<content styleCode="Italic s"> (98-107 MEQ/L)</content> Carbon dioxide, 22-30 <content [facility] total styleCode="Bold"> Cris [Moles/volume] in Carbon Dioxide Medical Serum or Plasma </content>26 Center MEQ/L<content styleCode="Italic s"> (22-30 MEQ/L)</content> Glucose 74-106 Above high <content [facility] [Mass/volume] in normal styleCode="Bold"> Evgeny hs Serum or Plasma Glucose Medical </content>152 Center MG/DL H<content styleCode="Italic s"> (74-106 MG/DL)</content> UNK > 60 <content [facility] styleCode="Bold"> Cris EGFR Medical </content>109 Center GFR<content styleCode="Italic s"> (> 60 GFR)</content> Alkaline 38-126 <content [facility] phosphatase styleCode="Bold"> Cris [Enzymatic Alkaline Medical activity/volume] Phosphatase (ALP) Cente r in Serum or Plasma </content>85 IU/L<content styleCode="Italic s"> (38-126 IU/L)</content> Calcium 8.4-10. <content [facility] [Mass/volume] in 2 styleCode="Bold"> Evgeny hs Serum or Plasma Calcium Medical </content>10.1 Center MG/DL<content styleCode="Italic s"> (8.4-10.2 MG/DL)</content> Alanine 7-30 <content [facility] aminotransferase styleCode="Bold"> Evgeny hs [Enzymatic Alanine Medical activity/volume] Aminotransferase Center in Serum or Plasma (ALT) </content>24 IU/L<content styleCode="Italic s"> (7-30 IU/L)</content> Aspartate 14-36 <content [facility] aminotransferase styleCode="Bold"> Evgeny hs [Enzymatic Aspartate Medical activity/volume] Aminotransferase Center in Serum or Plasma (AST) </content>23 IU/L<content styleCode="Italic s"> (14-36 IU/L)</content> Albumin 3.5-5.0 <content [facility] [Mass/volume] in styleCode="Bold"> Evgeny hs Serum or Plasma Albumin Medical </content>4.3 Center G/DL<content styleCode="Italic s"> (3.5-5.0 G/DL)</content> Bilirubin.total 0.2-1.3 <content [facility] [Mass/volume] in styleCode="Bold"> Evgeny hs Serum or Plasma Bilirubin Total Medical </content>0.3 Center MG/DL<content styleCode="Italic s"> (0.2-1.3 MG/DL)</content> ID Date Data Source Stools.[id number] 04/01/2019 02:10:00 PM EST [facility] Name Value Range Interpretation Description Data Sup porting Code Source(s) Document(s ) UNK Not Detected <content [facility] styleCode="Bold Medical ">H. Pylori Ag, Center Ql, Stool </content>Detec asmita <content styleCode="Ital ics"> (Not Detected )</content> ID Date Data Source Liver 02/08/2019 04:19:00 PM EDT [facility] Profile.[id number] Name Value Range Interpretation Description Data Sup porting Code Source(s) Document(s ) Alkaline 38-126 <content [facility] phosphatase styleCode="Bold"> Cris [Enzymatic Alkaline Medical activity/volume] Phosphatase (ALP) Cente r in Serum or Plasma </content>118 IU/L<content styleCode="Italic s"> (38-126 IU/L)</content> Bilirubin.total 0.2-1.3 <content [facility] [Mass/volume] in styleCode="Bold"> Evgeny hs Serum or Plasma Bilirubin Total Medical </content>0.4 Center MG/DL<content styleCode="Italic s"> (0.2-1.3 MG/DL)</content> Alanine 7-30 Above high <content [facility] aminotransferase normal styleCode="Bold"> Evgeny hs [Enzymatic Alanine Medical activity/volume] Aminotransferase Center in Serum or Plasma (ALT) </content>45 IU/L H<content styleCode="Italic s"> (7-30 IU/L)</content> Aspartate 14-36 <content [facility] aminotransferase styleCode="Bold"> Evgeny hs [Enzymatic Aspartate Medical activity/volume] Aminotransferase Center in Serum or Plasma (AST) </content>32 IU/L<content styleCode="Italic s"> (14-36 IU/L)</content> Albumin 3.5-5.0 <content [facility] [Mass/volume] in styleCode="Bold"> Evgeny hs Serum or Plasma Albumin Medical </content>4.5 Center G/DL<content styleCode="Italic s"> (3.5-5.0 G/DL)</content> ID Date Data Source LIPID.[id number] 02/08/2019 04:19:00 PM EDT [facility] Center Name Value Range Interpretation Description Data Sup porting Code Source(s) Document(s ) Triglyceride < 150 Above high normal <content [facility] [Mass/volume] styleCode="Bold"> Cris in Serum or Triglycerides Medical Plasma </content>270 Center MG/DL H<content styleCode="Italic s"> (< 150 MG/DL)</content> Cholesterol -<200 Above high normal <content [facility] [Mass/volume] styleCode="Bold"> Cris in Serum or Cholesterol Medical Plasma </content>219 Center MG/DL H<content styleCode="Italic s"> (-<200 MG/DL)</content> UNK > 60 Below low normal <content [facility] styleCode="Bold"> Cris HDL- Cholesterol Medical </content>44 Center MG/DL L<content styleCode="Italic s"> (> 60 MG/DL)</content> UNK <content [facility] styleCode="Bold"> Cris LDL-Cholesterol Medical </content> Center (Reference Range: not available)
<c ontent styleCode="xLocal PreformattedText" >Triglycerides are >250 mg/dl; therefore, the LDL calculation is invalid.
Chol esterol electrophoresis is recommended if medically appropriate.</con tent> ID Date Data Source Hormones.[id number] 02/08/2019 04:19:00 PM EDT [facility] Name Value Range Interpretation Description Data Sup porting Code Source(s) Document(s ) Thyrotropin 0.465-4. <content [facility] [Units/volume] 68 styleCode="Giacomo Cris in Serum or d">Thyroid Medical Plasma by Stimulating Center Detection Hormone limit <= 0.05 </content>2.15 mIU/L MIU/L<content styleCode="Aixa lics"> (0.465-4.68 MIU/L)</conten t> ID Date Data Source HematologyRou.[id number] 02/08/2019 04:19:00 PM EDT [facility] nt [facility] 0400 Name Value Range Interpretation Description Data Sup porting Code Source(s) Document(s ) Hemoglobin 12.3-16. <content [facility] [Mass/volume] in 0 styleCode="Bold Cris Blood ">Hemoglobin Medical </content>13.6 Center G/DL<content styleCode="Ital ics"> (12.3-16.0 G/DL)</content> Hematocrit 36.0-46. <content [facility] [Volume 0 styleCode="Bold Cris Fraction] of ">Hematocrit Medical Blood by </content>38.4 Center Automated count %<content styleCode="Ital ics"> (36.0-46.0 %)</content> Erythrocytes 4.0-5.1 <content [facility] [#/volume] in styleCode="Bold Cris Blood by ">Red Blood Medical Automated count Cell Count Center </content>4.50 MCUMM<content styleCode="Ital ics"> (4.0-5.1 MCUMM)</content > Leukocytes 4.4-11.0 <content [facility] [#/volume] in styleCode="Bold Cris Blood by ">White Blood Medical Automated count Cell Count Center </content>5.84 KCUMM<content styleCode="Ital ics"> (4.4-11.0 KCUMM)</content > Erythrocyte mean 32.0-37. <content [facility] corpuscular 0 styleCode="Bold Cris hemoglobin ">Mean Corpus. Medical concentration Hgb Center [Mass/volume] by Concentration Automated count (MCHC) </content>35.4 G/DL<content styleCode="Ital ics"> (32.0-37.0 G/DL)</content> Erythrocyte 11.5-14. <content [facility] distribution 5 styleCode="Bold Cris width [Ratio] by ">Red Cell Medical Automated count Distribution Center Width </content>12.2 %<content styleCode="Ital ics"> (11.5-14.5 %)</content> Erythrocyte mean 26.0-34. <content [facility] corpuscular 0 styleCode="Bold Cris hemoglobin ">Mean Medical [Entitic mass] Corposcular Center by Automated Hemoglobin count </content>30.2 PG<content styleCode="Ital ics"> (26.0-34.0 PG)</content> Erythrocyte mean 80.0-100 <content [facility] corpuscular .0 styleCode="Bold Cris volume [Entitic ">Mean Medical volume] by Corpuscular Center Automated count Volume </content>85.3 FL<content styleCode="Ital ics"> (80.0-100.0 FL)</content> Neutrophils 36-66 <content [facility] [#/volume] in styleCode="Bold Cris Blood by ">Neutrophil Medical Automated count </content>57.8 Center %<content styleCode="Ital ics"> (36-66 %)</content> Platelet mean 8.0-11.0 <content [facility] volume [Entitic styleCode="Bold Cris volume] in Blood ">Mean Platelet Medical by Automated Volume Center count </content>10.4 FL<content styleCode="Ital ics"> (8.0-11.0 FL)</content> UNK 1.6-7.3 <content [facility] styleCode="Bold Cris ">Neutrophil Medical Count Center </content>3.38 KCUMM<content styleCode="Ital ics"> (1.6-7.3 KCUMM)</content > Platelets 130-400 <content Saint [#/volume] in styleCode="Bold Cris Blood by ">Platelet Medical Automated count Count Center </content>324 KCUMM<content styleCode="Ital ics"> (130-400 KCUMM)</content > Monocytes 3.0-10.0 <content [facility] [#/volume] in styleCode="Bold Cris Blood by ">Monocyte Medical Automated count </content>7.0 Center %<content styleCode="Ital ics"> (3.0-10.0 %)</content> UNK 0.2-0.9 <content [facility] styleCode="Bold Cris ">Monocyte Medical Count Center </content>0.41 KCUMM<content styleCode="Ital ics"> (0.2-0.9 KCUMM)</content > Lymphocytes 24.0-44. <content [facility] [#/volume] in 0 styleCode="Bold Cris Blood by ">Lymphocyte Medical Automated count </content>30.5 Center %<content styleCode="Ital ics"> (24.0-44.0 %)</content> UNK 1.0-4.8 <content [facility] styleCode="Bold Cris ">Lymphocyte Medical Count Center </content>1.78 KCUMM<content styleCode="Ital ics"> (1.0-4.8 KCUMM)</content > UNK 0.0-0.3 <content [facility] styleCode="Bold Cris ">Basophil Medical Count Center </content>0.07 KCUMM<content styleCode="Ital ics"> (0.0-0.3 KCUMM)</content > Basophils 0.0-1.0 Above high <content [facility] [#/volume] in normal styleCode="Bold Cris Blood by ">Basophil Medical Automated count </content>1.2 % Center H<content styleCode="Ital ics"> (0.0-1.0 %)</content> UNK 0.0-0.6 <content [facility] styleCode="Bold Cris ">Eosinophil Medical Count Center </content>0.15 KCUMM<content styleCode="Ital ics"> (0.0-0.6 KCUMM)</content > Eosinophils 0-5.0 <content Saint [#/volume] in styleCode="Bold Cris Blood by ">Eosinophil Medical Automated count </content>2.6 Center %<content styleCode="Ital ics"> (0-5.0 %)</content> UNK 0-0.1 <content [facility] styleCode="Bold Cris ">Immature Medical Granulocyte Center Count </content>0.05 KCUMM<content styleCode="Ital ics"> (0-0.1 KCUMM)</content > UNK 0.0 <content Saint styleCode="Bold Cris ">Nucleated Red Medical Blood Cell Center Count </content>0.00 KCUMM<content styleCode="Ital ics"> (0.0 KCUMM)</content > UNK 0 <content [facility] styleCode="Bold Cris ">Nucleated Red Medical Blood Cell Center </content>0.0 /100<content styleCode="Ital ics"> (0 /100)</content> UNK < 1 <content [facility] styleCode="Bold Cris ">Immature Medical Granulocyte Center Ratio </content>0.9 %<content styleCode="Ital ics"> (< 1 %)</content> ID Date Data Source GFR(Creatinine).[id number] 02/08/2019 04:19:00 PM EDT [facility] 0-0400 Name Value Range Interpretation Code Description Data Carmen rce(s) Supporting Document(s ) UNK > 60 <content [facility] styleCode="Bold"> Medical Cent er EGFR </content>109 GFR<content styleCode="Italic s"> (> 60 GFR)</content> ID Date Data Source ChemistrySpecia.[id number] 02/08/2019 04:19:00 PM EDT [facility] 0-0400 Name Value Range Interpretation Description Data Sup porting Code Source(s) Document(s ) Cobalamin 239-931 <content Saint (Vitamin B12) styleCode="Giacomo Cris [Mass/volume] d">Vitamin B12 Medical in Serum or </content>573 Center Plasma PG/ML<content styleCode="Aixa lics"> (239-931 PG/ML)</conten t> ID Date Data Source BMP.[id number] 02/08/2019 04:19:00 PM EDT [facility] Name Value Range Interpretation Description Data Sup porting Code Source(s) Document(s ) Potassium 3.5-5.3 <content [facility] [Moles/volume] in styleCode="Bold"> Mike phs Serum or Plasma Potassium Medical </content>4.2 Center MEQ/L<content styleCode="Italic s"> (3.5-5.3 MEQ/L)</content> Sodium 137-145 <content [facility] [Moles/volume] in styleCode="Bold"> Mike phs Serum or Plasma Sodium Medical </content>138 Center MEQ/L<content styleCode="Italic s"> (137-145 MEQ/L)</content> UNK 7-17 <content [facility] styleCode="Bold"> Cris BUN </content>13 Medical MG/DL<content Center styleCode="Italic s"> (7-17 MG/DL)</content> Glucose 74-106 Above high <content [facility] [Mass/volume] in normal styleCode="Bold"> Evgeny hs Serum or Plasma Glucose Medical </content>295 Center MG/DL H<content styleCode="Italic s"> (74-106 MG/DL)</content> Carbon dioxide, 22-30 <content [facility] total styleCode="Bold"> Cris [Moles/volume] in Carbon Dioxide Medical Serum or Plasma </content>24 Center MEQ/L<content styleCode="Italic s"> (22-30 MEQ/L)</content> Chloride 98-107 <content [facility] [Moles/volume] in styleCode="Bold"> Mike phs Serum or Plasma Chloride Medical </content>101 Center MEQ/L<content styleCode="Italic s"> (98-107 MEQ/L)</content> Creatinine 0.5-1.3 <content [facility] [Mass/volume] in styleCode="Bold"> Evgeny hs Serum or Plasma Creatinine Medical </content>0.6 Center MG/DL<content styleCode="Italic s"> (0.5-1.3 MG/DL)</content> Aspartate 14-36 <content [facility] aminotransferase styleCode="Bold"> Evgeny hs [Enzymatic Aspartate Medical activity/volume] Aminotransferase Center in Serum or Plasma (AST) </content>32 IU/L<content styleCode="Italic s"> (14-36 IU/L)</content> UNK > 60 <content [facility] styleCode="Bold"> Cris EGFR Medical </content>109 Center GFR<content styleCode="Italic s"> (> 60 GFR)</content> Alanine 7-30 Above high <content [facility] aminotransferase normal styleCode="Bold"> Evgeny hs [Enzymatic Alanine Medical activity/volume] Aminotransferase Center in Serum or Plasma (ALT) </content>45 IU/L H<content styleCode="Italic s"> (7-30 IU/L)</content> Calcium 8.4-10. Above high <content [facility] [Mass/volume] in 2 normal styleCode="Bold"> Evgeny hs Serum or Plasma Calcium Medical </content>10.5 Center MG/DL H<content styleCode="Italic s"> (8.4-10.2 MG/DL)</content> Bilirubin.total 0.2-1.3 <content [facility] [Mass/volume] in styleCode="Bold"> Evgeny hs Serum or Plasma Bilirubin Total Medical </content>0.4 Center MG/DL<content styleCode="Italic s"> (0.2-1.3 MG/DL)</content> Alkaline 38-126 <content [facility] phosphatase styleCode="Bold"> Cris [Enzymatic Alkaline Medical activity/volume] Phosphatase (ALP) Cente r in Serum or Plasma </content>118 IU/L<content styleCode="Italic s"> (38-126 IU/L)</content> Albumin 3.5-5.0 <content [facility] [Mass/volume] in styleCode="Bold"> Evgeny hs Serum or Plasma Albumin Medical </content>4.5 Center G/DL<content styleCode="Italic s"> (3.5-5.0 G/DL)</content> ID Date Data Source BRITTANEY.[id number] 02/08/2019 04:19:00 PM EDT [facility] -0400 Name Value Range Interpretation Description Data Sup porting Code Source(s) Document(s ) UNK >= 1.0 <content [facility] styleCode="Bold Cris ">AG Ratio Medical </content>1.3 Center <content styleCode="Ital ics"> (>= 1.0 )</content> Ferritin 11-264 <content Saint [Mass/volume styleCode="Bold Cris ] in Serum ">Ferritin Medical or Plasma </content>59.6 Center NG/ML<content styleCode="Ital ics"> (11-264 NG/ML)</content > UNK 2.3-3.5 <content [facility] styleCode="Bold Cris ">Globulin Medical </content>3.4 Center G/DL<content styleCode="Ital ics"> (2.3-3.5 G/DL)</content> UNK 4.2-5.8 Above high normal <content [facility] styleCode="Bold Cris ">Hemoglobin Medical A1C Center </content>9.9 % H<content styleCode="Ital ics"> (4.2-5.8 %)</content> Protein 6.3-8.2 <content [facility] [Mass/volume styleCode="Bold Cris ] in Serum ">Total Protein Medical or Plasma </content>7.9 Center G/DL<content styleCode="Ital ics"> (6.3-8.2 G/DL)</content> Procedure Social History Code Duration Value Status Description Data Source(s ) Caffeine Use 02/21/2020 coffee completed coffee NEXTGEN ([facility]an nt Details 12:00:00 AM EDT [facility]) 02/21/2020 Never smoked completed Never smoked NEXTGEN (S aint 12:00:00 AM EDT tobacco tobacco [facility]) Smoking 02/21/2020 Unknown if completed Unknown if ever NEXTGEN ( [facility] 12:00:00 AM EDT ever smoked smoked [facility]) Caffeine Use 12/29/2019 completed coffee NEXTGEN ([facility] nt Details 12:00:00 AM EDT [facility]) Vital Signs ID Date Data Source UNK Name Value Range Interpretation Code Description Data Source(s) Oxygen saturation 97 % 97 % NEXTGEN ([facility] in Arterial blood [facility] by Pulse oximetry Center) Body mass index 31.98 kg/m2 Overweight 31.98 kg/m2 NEXTGEN ([facility] (BMI) [Ratio] [facility]) Respiratory rate 24 /min 24 /min NEXTGEN ([facility]) Heart rate 100 /min 100 /min NEXTGEN ([facility]) Diastolic blood 61 mm[Hg] 61 mm[Hg] NEXTGEN ( [facility]) Systolic blood 110 mm[Hg] 110 mm[Hg] NEXTGEN (S aint pressure [facility]) Body weight 87.180 kg 87.180 kg NEXTGEN ([facility]) Body height 165.10 cm 165.10 cm [facility] ([facility]) Oxygen saturation 96 % 96 % NEXTGEN ([facility] in Arterial blood [facility] Pulse oximetry Center) Body mass index 32.28 kg/m2 Overweight 32.28 kg/m2 NEXTGEN ([facility] (BMI) [Ratio] [facility]) Respiratory rate 19 /min 19 /min NEXTGEN ([facility]) Body temperature 36.61 Dinora 36.61 Dinora NEXTGEN ([facility]) Heart rate 86 /min 86 /min NEXTGEN ([facility]) Diastolic blood 69 mm[Hg] 69 mm[Hg] NEXTGEN ( [facility]) Systolic blood 108 mm[Hg] 108 mm[Hg] NEXTGEN (S aint pressure [facility]) Body weight 87.997 kg 87.997 kg NEXTGEN ([facility]) Body height 165.10 cm 165.10 [facility]) Oxygen saturation 96 % 96 % NEXTGEN ([facility] in Arterial blood [facility] Pulse [facility]xim[facility]) Body mass index 33.12 kg/m2 Overweight 33.12 kg/m2 NEXTGEN ([facility] (BMI) [Ratio] [facility]) Respiratory rate 18 /min 18 /min NEXTGEN ([facility]) Body temperature 36.61 Dinora 36.61 Dinora NEXTGEN ([facility]) Heart rate 95 /min 95 /min NEXTGEN ([facility]) Diastolic blood 70 mm[Hg] 70 mm[Hg] [facility]EXTGEN ( [facility]) Systolic blood 112 mm[Hg] 112 mm[Hg] [facility] (S [facility]) Body weight 90.265 kg 90[facility]265 kg [facility] ([facility]) Body height 165.10 cm 165.10 cm [facility] ([facility]) Oxygen saturation 96 % 96 % NEXTGEN ([facility] in Arterial blood [facility]) Body mass index 33.25 kg/m2 Overweight 33.25 kg/m2 NEXTGEN ([facility] (BMI) [Ratio] [facility]) Respiratory rate 18 /min 18 /min [facility] ([facility]) Body temperature 36.39 Dinora 36.39 Dinora [facility] ([facility]) Heart rate 88 /min 88 /min NEXTGEN ([facility]) Diastolic blood 69 mm[Hg] 69 mm[Hg] [facility] ( [facility]) Systolic blood 118 mm[Hg] 118 mm[Hg] [facility] (S aint [facility]) Body weight 90.628 kg 90.628 kg [facility] ([facility]) Body height 165.10 cm 165.10 cm [facility] ([facility]) Oxygen saturation 97 % 97 % NEXTGEN ([facility] in Arterial blood [facility]) Body mass index 32.78 kg/m2 Overweight 32.78 kg/m2 NEXTGEN ([facility] (BMI) [Ratio] [facility]) Respiratory rate 18 /min 18 /min NEXTGEN ([facility]) Body temperature 36.67 Dinora 36.67 Dinora NEXTGEN ([facility]) Heart rate 85 /min 85 /min [facility] ([facility]) Diastolic blood 63 mm[Hg] 63 mm[Hg] NEXTGEN ( [facility]) Systolic blood 104 mm[Hg] 104 mm[Hg] NEXTGEN (S nt [facility]) Body weight 89.358 kg 89.358 kg [facility]EXT[facility] ([facility]) Body height 165.10 cm 165.10 cm [facility] ([facility]) Oxygen saturation 95 % 95 % [facility] ([facility] in Arterial blood [facility]) Body mass index 32.28 kg/m2 Overweight 32.28 kg/m2 [facility] ([facility] (BMI) [Ratio] [facility]) Respiratory rate 16 /min 16 /min [facility] ([facility]) Body temperature 36.56 Dinora 36.56 Dinora [facility] ([facility]) Heart rate 101 /min 101 /min [facility] ([facility]) Diastolic blood 70 mm[Hg] 70 mm[Hg] [facility] ( [facility]) Systolic blood 114 mm[Hg] 114 mm[Hg] [facility] ([facility]) Body weight 87.997 kg 87.997 kg [facility] ([facility]) Body height 165.10 cm 165.10 cm [facility] ([facility]) Diastolic blood 79 mm[Hg] 79 mm[Hg] eCW1 (Ian nt pressure [facility]) Systolic blood 120 mm[Hg] 120 mm[Hg] eCW1 (Heike t pressure [facility]) Body temperature 98.7 [degF] 98.7 [degF] eCW1 ( [facility]) Respiratory rate 16 /min 16 /min eCW1 [facility] Heart rate 79 /min 79 /min [facility]CW1 [facility] Body mass index 32.44 kg/m2 32.44 kg/m2 eCW1 (S aint (BMI) [Ratio] [facility]) Body weight 201 [lb_av] 201 [lb_av] eCW1 ([facility]) Body height [in_us] eCW1 ([facility]) Oxygen saturation 94 % 94 % NEXTGEN ([facility] in Arterial blood [facility]) Body mass index 33.51 kg/m2 Overweight 33.51 kg/m2 NEXTGEN ([facility] (BMI) [Ratio] [facility]) Respiratory rate 18 /min 18 /min NEXTGEN ([facility]) Body temperature 36.33 Dinora 36.33 Dinora NEXTGEN ([facility]) Heart rate 82 /min 82 /min NEXTGEN ([facility]) Diastolic blood 73 mm[Hg] 73 mm[Hg] NEXTGEN ( [facility]) Systolic blood 120 mm[Hg] 120 mm[Hg] NEXTGEN (S aint [facility]) Body weight 91.354 kg 91.354 kg NEXTGEN ([facility]) Body height 165.10 cm 165.10 cm [facility] ([facility]) Oxygen saturation 97 % 97 % NEXTGEN ([facility] in Arterial blood [facility]) Body mass index 33.95 kg/m2 Overweight 33.95 kg/m2 NEXTGEN ([facility] (BMI) [Ratio] [facility]) Respiratory rate 18 /min 18 /min NEXTGEN ([facility]) Body temperature 36.39 Dinora 36.39 Dinora NEXTGEN ([facility]) Heart rate 88 /min 88 /min NEXTGEN ([facility]) Diastolic blood 75 mm[Hg] 75 mm[Hg] NEXTGEN ( [facility]) Systolic blood 113 mm[Hg] 113 mm[Hg] NEXTGEN ([facility]) Body weight 92.533 kg 92.533 kg NEXTGEN ([facility]) Body height 165.10 cm 165.10 cm NEXTGEN ([facility]) Oxygen saturation 97 % 97 % NEXTGEN ([facility] in Arterial blood [facility]) Body mass index 33.95 kg/m2 Overweight 33.95 kg/m2 NEXTGEN ([facility] (BMI) [Ratio] [facility]) Respiratory rate 18 /min 18 /min NEXTGEN ([facility]) Body temperature 36.72 Dinora 36.72 Dinora NEXTGEN ([facility]) Heart rate 78 /min 78 /min NEXTGEN ([facility]) Diastolic blood 74 mm[Hg] 74 mm[Hg] NEXTGEN ( [facility]) Systolic blood 110 mm[Hg] 110 mm[Hg] NEXTGEN (S nt [facility]) Body weight 92.533 kg 92.533 kg [facility] ([facility]) Body height 165.10 cm 165.10 cm [facility] ([facility]) Oxygen saturation 96 % 96 % NEXTGEN ([facility] in Arterial blood [facility]) Body mass index 33.85 kg/m2 Overweight 33.85 kg/m2 NEXTGEN ([facility] (BMI) [Ratio] [facility]) Respiratory rate 18 /min 18 /min [facility] ([facility]) Body temperature 35.72 Dinora 35.72 Dinora [facility] ([facility]) Heart rate 76 /min 76 /min NEXTGEN ([facility]) Diastolic blood 70 mm[Hg] 70 mm[Hg] NEXTGEN ( [facility]) Systolic blood 111 mm[Hg] 111 mm[Hg] [facility] (S nt [facility]) Body weight 92.261 kg 92.261 kg [facility] ([facility]) Body height 165.10 cm 165.10 cm [facility] ([facility]) Oxygen saturation 96 % 96 % [facility] ([facility] in Arterial blood [facility]) Body mass index 33.61 kg/m2 Overweight 33.61 kg/m2 NEXTGEN ([facility] (BMI) [Ratio] [facility]) Respiratory rate 20 /min 20 /min [facility] ([facility]) Body temperature 36.78 Dinora 36.78 Dinora [facility] ([facility]) Heart rate 78 /min 78 /min NEXTGEN ([facility]) Diastolic blood 62 mm[Hg] 62 mm[Hg] NEXTGEN ( [facility]) Systolic blood 108 mm[Hg] 108 mm[Hg] NEXTGEN (S [facility]) Body weight 91.626 kg 91.626 kg [facility] ([facility]) Body height 165.10 cm 165.10 cm [facility] ([facility]) Oxygen saturation 96 % 96 % NEXTGEN ([facility] in Arterial blood [facility]) Body mass index 33.95 kg/m2 Overweight 33.95 kg/m2 NEXTGEN ([facility] (BMI) [Ratio] [facility]) Respiratory rate 18 /min 18 /min NEXTGEN ([facility]) Body temperature 36.78 Dinora 36.78 Dinora [facility] ([facility]) Heart rate 94 /min 94 /min NEXTGEN ([facility]) Diastolic blood 77 mm[Hg] 77 mm[Hg] [facility] ( [facility]) Systolic blood 123 mm[Hg] 123 mm[Hg] [facility] (S [facility]) Body weight 92.533 kg 92.533 kg [facility] ([facility]) Body height 165.10 cm 165.10 cm [facility] ([facility]) Oxygen saturation 94 % 94 % NEXTGEN ([facility] in Arterial blood [facility]) Body mass index 33.95 kg/m2 Overweight 33.95 kg/m2 NEXTGEN ([facility] (BMI) [Ratio] [facility]) Respiratory rate 17 /min 17 /min NEXTGEN ([facility]) Body temperature 36.78 Dinora 36.78 Dinora [facility] ([facility]) Heart rate 82 /min 82 /min NEXTGEN ([facility]) Diastolic blood 73 mm[Hg] 73 mm[Hg] NEXTGEN ( [facility]) Systolic blood 113 mm[Hg] 113 mm[Hg] NEXTGEN (S nt pressure [facility]) Body weight 92.533 kg 92.533 kg NEXTGEN ([facility]) Body height 165.10 cm 165.10 cm [facility] ([facility]) Oxygen saturation 97 % 97 % NEXTGEN ([facility] in Arterial blood [facility]) Body mass index 33.81 kg/m2 Overweight 33.81 kg/m2 NEXTGEN ([facility] (BMI) [Ratio] [facility]) Respiratory rate 18 /min 18 /min NEXTGEN ([facility]) Body temperature 36.44 Dinora 36.44 Dinora [facility] ([facility]) Heart rate 86 /min 86 /min [facility] ([facility]) Diastolic blood 69 mm[Hg] 69 mm[Hg] NEXTGEN ( [facility]) Systolic blood 115 mm[Hg] 115 mm[Hg] [facility] (S [facility]) Body weight 92.170 kg 92.170 kg [facility] ([facility]) Body height 165.10 cm 165.10 cm [facility] ([facility]) Oxygen saturation 100 % 100 % NEXTGEN ([facility] in Arterial blood [facility]) Body mass index 33.45 kg/m2 Overweight 33.45 kg/m2 NEXTGEN ([facility] (BMI) [Ratio] [facility]) Respiratory rate 17 /min 17 /min [facility] ([facility]) Body temperature 36.56 Dinora 36.56 Dinora [facility] ([facility]) Heart rate 84 /min 84 /min [facility] ([facility]) Diastolic blood 73 mm[Hg] 73 mm[Hg] NEXTGEN ( [facility]) Systolic blood 110 mm[Hg] 110 mm[Hg] [facility] (S nt pressure [facility]) Body weight 91.172 kg 91.172 kg [facility] ([facility]) Body height 165.10 cm 165.10 cm [facility] ([facility]) Patient Treatment Plan of Care Planned Activity Planned Date Details Description Data Source (s) Famotidine 40 MG Oral 02/24/2020 NEXTGE N ([facility] Tablet 12:00:00 AM [facility]) 120 ACTUAT formoterol 02/24/2020 NEXTGE N ([facility] fumarate 0.005 MG/ACTUAT / 12:00:00 AM [facility] mometasone furoate 0.1 Cente r) MG/ACTUAT Metered Dose Inhaler [Dulera] Steglatro 15 mg tablet 02/21/2020 NEXTG EN ([facility] 12:00:00 AM [facility]) Aerochamber Plus Z Stat 02/21/2020 NEXT GEN ([facility] spacer 12:00:00 AM [facility]) [place] Choice Nebulizer 02/21/2020 NEXT GEN ([facility] 12:00:00 AM [facility]) Albuterol 1 MG/ML Inhalant 02/21/2020 N EXTGEN ([facility] Solution 12:00:00 AM [facility]) Prednisone 20 MG Oral 02/21/2020 NEXTGE N ([facility] Tablet 12:00:00 AM [facility]) Guaifenesin 400 MG Oral 02/21/2020 NEXT GEN ([facility] Tablet 12:00:00 AM [facility]) empagliflozin 25 MG Oral 02/06/2020 NEX TGEN ([facility] Tablet [Jardiance] 12:00:00 AM [facility]) sitagliptin 100 MG Oral 02/06/2020 NEXT GEN ([facility] Tablet [Januvia] 12:00:00 AM [facility]) 200 ACTUAT Albuterol 0.09 02/03/2020 NE XTGEN ([facility] MG/ACTUAT Metered Dose 12:00:00 AM [facility] Inhaler [Proventil] Center) glimepiride 4 MG Oral 02/03/2020 NEXTGE N ([facility] Tablet 12:00:00 AM [facility]) atorvastatin 40 MG Oral 02/03/2020 NEXT GEN ([facility] Tablet 12:00:00 AM [facility]) Metformin hydrochloride 02/03/2020 NEXT GEN ([facility] 1000 MG Oral Tablet 12:00:00 AM [facility]) Levothyroxine Sodium 0.088 02/03/2020 N EXTGEN ([facility] MG Oral Tablet [Synthroid] 12:00:00 AM [facility]) Aspirin 81 MG Delayed 02/03/2020 NEXTGE N ([facility] Release Oral Tablet 12:00:00 AM [facility]) Lisinopril 5 MG Oral Tablet 02/03/2020 NEXTGEN ([facility] 12:00:00 AM [facility]) 0.5 ML dulaglutide 3 MG/ML 02/03/2020 N EXTGEN ([facility] Auto-Injector [Trulicity] 12:00:00 AM [facility]) Prednisone 20 MG Oral 01/17/2020 NEXTGE N ([facility] Tablet 12:00:00 AM [facility]) benzonatate 200 MG Oral 01/17/2020 NEXT GEN ([facility] Capsule 12:00:00 AM [facility]) Azithromycin 500 MG Oral 01/17/2020 NEX TGEN ([facility] Tablet 12:00:00 AM [facility]) montelukast 10 MG Oral 12/29/2019 NEXTG EN ([facility] Tablet [Singulair] 12:00:00 AM [facility]) Flonase Allergy Relief 50 10/24/2019 NE XTGEN ([facility] mcg/actuation nasal 12:00:00 AM [facility] spray,suspension Center) Contour Test Strips 10/24/2019 NEXTGEN ([facility] 12:00:00 AM [facility]) 200 ACTUAT Albuterol 0.09 10/24/2019 NE XTGEN ([facility] MG/ACTUAT Metered Dose 12:00:00 AM [facility] Inhaler [Proventil] Center) 28 ACTUAT Fluticasone 10/24/2019 NEXTGE N ([facility] propionate 0.1 MG/ACTUAT 12:00:00 AM [facility] Dry Powder Inhaler [place]) [Flovent] Lisinopril 5 MG Oral Tablet 10/21/2019 NEXTGEN ([facility] 12:00:00 AM [facility]) Aspirin 81 MG Delayed 10/21/2019 NEXTGE N ([facility] Release Oral Tablet 12:00:00 AM [facility]) Levothyroxine Sodium 0.088 10/21/2019 N EXTGEN ([facility] MG Oral Tablet [Synthroid] 12:00:00 AM [facility]) Metformin hydrochloride 10/21/2019 NEXT GEN ([facility] 1000 MG Oral Tablet 12:00:00 AM [facility]) sitagliptin 100 MG Oral 10/21/2019 NEXT GEN ([facility] Tablet [Januvia] 12:00:00 AM [facility]) glimepiride 4 MG Oral 10/21/2019 NEXTGE N ([facility] Tablet 12:00:00 AM [facility]) Flonase Allergy Relief 50 10/21/2019 NE XTGEN ([facility] mcg/actuation nasal 12:00:00 AM [facility] Medical spray,suspension Center) Flonase Allergy Relief 50 10/21/2019 NE XTGEN ([facility] mcg/actuation nasal 12:00:00 AM [facility] Medical spray,suspension [place]) Contour Test Strips 10/21/2019 NEXTGEN ([facility] 12:00:00 AM [facility]) atorvastatin 40 MG Oral 10/13/2019 NEXT GEN ([facility] Tablet 12:00:00 AM [facility]) Lisinopril 5 MG Oral Tablet 10/13/2019 NEXTGEN ([facility] 12:00:00 AM [facility]) Levothyroxine Sodium 0.088 10/13/2019 N EXTGEN ([facility] MG Oral Tablet [Synthroid] 12:00:00 AM [facility]) sitagliptin 100 MG Oral 10/13/2019 NEXT GEN ([facility] Tablet [Januvia] 12:00:00 AM [facility]) glimepiride 4 MG Oral 10/13/2019 NEXTGE N ([facility] Tablet 12:00:00 AM [facility]) 200 ACTUAT Albuterol 0.09 10/13/2019 NE XTGEN ([facility] MG/ACTUAT Metered Dose 12:00:00 AM [facility] Medical Inhaler [Proventil] [place]) Acetaminophen 500 MG Oral 08/29/2019 NE XTGEN ([facility] Capsule [Mapap] 12:00:00 AM [facility]) Azithromycin 250 MG Oral 08/29/2019 NEX TGEN ([facility] Tablet 12:00:00 AM [facility]) Phenazopyridine 08/16/2019 NEXTGEN (Ian nt hydrochloride 200 MG Oral 12:00:00 AM [facility] Tablet [Pyridium] Center) 28 ACTUAT Fluticasone 08/16/2019 NEXTGE N ([facility] propionate 0.1 MG/ACTUAT 12:00:00 AM [facility] Dry Powder Inhaler [place]) [Flovent] benzonatate 200 MG Oral 08/16/2019 NEXT GEN ([facility] Capsule 12:00:00 AM [facility]) Phenazopyridine 08/16/2019 NEXTGEN (Ian nt hydrochloride 200 MG Oral 12:00:00 AM [facility] Tablet [Pyridium] [place]) Linzess 72 mcg capsule 07/18/2019 NEXTG EN (Saint 12:00:00 AM [facility]) Shingrix (PF) 50 mcg/0.5 mL 07/04/2019 NEXTGEN ([facility] intramuscular suspension, 12:00:00 AM [facility]) POLYETHYLENE GLYCOL 3350 07/04/2019 NEX TGEN ([facility] 142 MG/ML Oral Solution 12:00:00 AM [facility] [Miralax] [place]) benzonatate 200 MG Oral 07/04/2019 NEXT GEN ([facility] Capsule 12:00:00 AM [facility]) POLYETHYLENE GLYCOL 3350 07/04/2019 NEX TGEN ([facility] 142 MG/ML Oral Solution 12:00:00 AM [facility] [place]) cetirizine hydrochloride 10 05/30/2019 NEXTGEN ([facility] MG Oral Tablet 12:00:00 AM [facility] pantoprazole 20 MG Delayed 05/30/2019 N EXTGEN ([facility] Release Oral Tablet 12:00:00 AM [facility]) montelukast 10 MG Oral 05/30/2019 NEXTG EN ([facility] Tablet [Singulair] 12:00:00 AM [facility]) nabumetone 500 MG Oral 05/30/2019 NEXTG EN ([facility] Tablet 12:00:00 AM [facility]) benzonatate 200 MG Oral 05/30/2019 NEXT GEN ([facility] Capsule 12:00:00 AM [facility]) gabapentin 300 MG Oral 05/30/2019 NEXTG EN ([facility] Capsule 12:00:00 AM [facility]) Amoxicillin 500 MG Oral 05/11/2019 NEXT GEN ([facility] Tablet 12:00:00 AM [facility]) Amoxicillin 500 MG Oral 05/06/2019 NEXT GEN ([facility] Tablet 12:00:00 AM [facility]) Lactobacillus acidophilus 05/02/2019 NE XTGEN ([facility] [id number] UNT Oral 12:00:00 AM [facility]) pantoprazole 20 MG Delayed 05/02/2019 N EXTGEN ([facility] Release Oral Tablet 12:00:00 AM [facility]) gabapentin 100 MG Oral 04/29/2019 NEXTG EN ([facility] Capsule 12:00:00 AM [facility]) bismuth subcitrate 140 MG / 04/29/2019 NEXTGEN ([facility] Metronidazole 125 MG / 12:00:[address] [facility] tetracycline hydrochloride C enter) 125 MG Oral Capsule [Pylera] Cyclobenzaprine 04/06/2019 NEXTGEN (Ian nt hydrochloride 5 MG Oral 12:00:00 AM [facility] Tablet [place]) Naproxen 500 MG Delayed 04/06/2019 NEXT GEN ([facility] Release Oral Tablet 12:00:00 AM [facility]) 8 HR Acetaminophen 650 MG 03/30/2019 NE XTGEN ([facility] Extended Release Oral 12:00:00 AM [facility] Medical Tablet [Mapap] Center) benzonatate 200 MG Oral 03/30/2019 NEXT GEN ([facility] Capsule 12:00:00 AM [facility]) icosapent ethyl 1000 MG 03/30/2019 NEXT GEN ([facility] Oral Capsule [Vascepa] 12:00:00 AM [facility]) Guaifenesin 400 MG Oral 03/30/2019 NEXT GEN ([facility] Tablet 12:00:00 AM [facility]) montelukast 10 MG Oral 03/30/2019 NEXTG EN ([facility] Tablet 12:00:00 AM [facility]) montelukast 10 MG Oral 02/23/2019 NEXTG EN ([facility] Tablet [Singulair] 12:00:00 AM [facility]) Aspirin 81 MG Delayed 02/08/2019 NEXTGE N ([facility] Release Oral Tablet 12:00:00 AM [facility]) Metformin hydrochloride 02/08/2019 NEXT GEN ([facility] 1000 MG Oral Tablet 12:00:00 AM [facility]) Lisinopril 5 MG Oral Tablet 02/08/2019 NEXTGEN ([facility] 12:00:00 AM [facility]) Levothyroxine Sodium 0.088 02/08/2019 N EXTGEN ([facility] MG Oral Tablet [Synthroid] 12:00:00 AM [facility]) atorvastatin 40 MG Oral 02/08/2019 NEXT GEN ([facility] Tablet 12:00:00 AM [facility]) sitagliptin 100 MG Oral 02/08/2019 NEXT GEN ([facility] Tablet [Januvia] 12:00:00 AM [facility]) glimepiride 4 MG Oral 02/08/2019 NEXTGE N ([facility] Tablet 12:00:00 AM [facility]) 200 ACTUAT Albuterol 0.09 02/08/2019 NE XTGEN ([facility] MG/ACTUAT Metered Dose 12:00:00 AM [facility] [place]) pantoprazole 20 MG Delayed 02/08/2019 N EXTGEN ([facility] Release Oral Tablet 12:00:00 AM [facility]) pantoprazole 20 MG Delayed 12/01/2018 N EXTGEN ([facility] Release Oral Tablet 12:00:00 AM [facility]) Lisinopril 5 MG Oral Tablet 12/01/2018 NEXTGEN ([facility] 12:00:00 AM [facility]) Aspirin 81 MG Delayed 12/01/2018 NEXTGE N ([facility] Release Oral Tablet 12:00:00 AM [facility]) Levothyroxine Sodium 0.088 12/01/2018 N EXTGEN ([facility] MG Oral Tablet [Synthroid] 12:00:00 AM [facility]) Metformin hydrochloride 12/01/2018 NEXT GEN ([facility] 1000 MG Oral Tablet 12:00:00 AM [facility]) atorvastatin 40 MG Oral 12/01/2018 NEXT GEN ([facility] Tablet 12:00:00 AM [facility]) sitagliptin 100 MG Oral 12/01/2018 NEXT GEN ([facility] Tablet [Januvia] 12:00:00 AM [facility]) glimepiride 4 MG Oral 12/01/2018 NEXTGE N ([facility] Tablet 12:00:00 AM [facility]) amoxicillin 500 10/19/2018 NEXTGEN (Ian nt mg-clarithromycin 500 12:00:00 AM EDT [facility] mg-lansoprazole 30 mg combo Center) pack Lactobacillus acidophilus 10/06/2018 NE XTGEN ([facility] [id number] UNT Oral 12:00:00 AM EDT [facility] C[facility]) Acetaminophen 500 MG Oral 07/22/2018 NE XTGEN ([facility]Mapap[facility] 12:00:00 [facility]) 200 ACTUAT Albuterol 0.09 07/22/2018 NE XTGEN ([facility] MG/ACTUAT Metered Dose 12:00:00 AM [facility] Inhaler [Proventil] Center) Famotidine 20 MG Oral 03/15/2018 NEXTGE N ([facility] Tablet 12:00:00 AM EDT [facility]) sennosides, ASSISTED 8.6 MG Oral 11/23/2017 NEXTGEN ([facility] Tablet 12:00:00 AM EDT [facility]) Contour Test Strips 11/23/2017 NEXTGEN ([facility] 12:00:00 AM EDT [facility]) POLYETHYLENE GLYCOL 3350 11/23/2017 NEX TGEN ([facility] 142 MG/ML Oral Solution 12:00:00 AM EDT [facility] [Miralax] Center)
--- NOTE | 2020-03-10 01:37 | PDOC ---
Attending Attestation - Resident Resident Name: CarlosImanfahad - ED Attending Attestation I have performed the following: I have examined & evaluated the patient, The case was reviewed & discussed with the resident, I agree w/resident's findings & plan - HPI HPI: 03/10/20 01:38 Pt was switched from PO DM meds to insulin yesterday. for 3 weeks has had sinus headaches. - Physicial Exam PE: 03/10/20 06:32 Agree with resident exam Pt has stuffy congested nose; difficulty breathing Pt has normal oxygenation however. - Medical Decision Making 03/10/20 03:11 Pt has normal WBC; eosinophils are high. 03/10/20 03:37 chem is normal ; glc high 03/10/20 03:56 EXAM: HEAD CT WITHOUT CONTRAST HISTORY: Headache COMPARISON: None. FINDINGS: The ventricular system is midline and nondilated. The sulcal pattern is normal for the patient's age. There is no bleed, mass, extra-axial fluid collection or mass effect. No skull fracture or skull lesion is identified. The mastoid air cells are clear. Multifocal prominent sinus mucosal thickening likely indicate sinusitis. IMPRESSION: Probable sinusitis. No evidence of acute intracranial pathology. 03/10/20 03:56 Patient Name: FRANCOIS THIS IS A PRELIMINARY REPORT DATE OF SERVICE: 2020-03-10 03:17:46 IMAGES: [id number] EXAM: CT facial bones W/O CONTRAST HISTORY: Headache COMPARISON: None. FINDINGS: The intraorbital contents are intact. Diffuse moderate to severe sinus mucosal thickening, with near complete opacification of the ethmoid sinuses is consistent with sinusitis. The mastoid air cells are well aerated. There is no fracture. IMPRESSION: Diffuse sinusitis. 03/10/20 06:33 Home with zpak and flonase. She can fill afrin OTC; she has certrizine. 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 Discharge - Discharge Information Problems reviewed: Yes Clinical Impression/Diagnosis: Sinusitis Condition: Improved Disposition: HOME - Admission No - Additional Discharge Information Prescriptions: Fluticasone Prop 0.05% Nasal [Flonase -] 1 - 2 spray NS DAILY #1 spray.pump Azithromycin [Zithromax Tri-Josue (3 DAYS) -] 500 mg PO DAILY #3 tablet - Follow up/Referral Referrals: Nathanael Alonso MD [Primary Care Provider] - - Patient Discharge Instructions Patient Printed Discharge Instructions: Sinusitis (Alternative Therapy), DI for Sinusitis Print Language: BENINESE - Post Discharge Activity
[2020-03-10] MEDS ORDERED: AZITHROMYCIN IVPB 500 MG in DEXTROSE 5%-WATER - 250 ML IVPB ONE (01:40)
[2020-03-10] MEDS ORDERED: OXYMETAZOLINE 0.05% NASAL SOLUTION 15 ML BOTTLE NS ONE (01:45)
[2020-03-10] MEDS ORDERED: ACETAMINOPHEN 500 MG TABLET (FP) PO ONE (01:45)
--- NOTE | 2020-03-10 01:46 | PDOC ---
History of Present Illness - General Chief Complaint: Shortness of Breath Stated Complaint: DIFFICULTY BREATHING Time Seen by Provider: 03/10/20 01:27 - History of Present Illness Initial Comments: 03/10/20 01:45 HPI: 59 y/o F with hx of IDDM, asthma, HTN, HLD, hypothyroid presenting with 20 days of "asthma symptoms." She reports intermittent rhinorrhea, cough, congestion, rhinorrhea, sneezing, MCINTYRE, SOB for a few days at a time. She states she feels symptomatic for a few days and then feels better and then gets sicks again. She denies fever, chest pain, syncope, diarrhea. She reports clear sinus congestion PMHx: as noted above ROS: as noted SHx: Denies tobacco use; no alcohol use; no rec drugs Allergies: NKDA ROS: GENERAL/CONSTITUTIONAL: No fever or chills. No weakness. HEAD, EYES, EARS, NOSE AND THROAT: No change in vision. No ear pain or discharge. No sore throat. CARDIOVASCULAR: No chest pain; +shortness of breath RESPIRATORY: +cough; no wheezing, or hemoptysis. GASTROINTESTINAL: No nausea, vomiting, diarrhea or constipation. GENITOURINARY: No dysuria, frequency, or change in urination. MUSCULOSKELETAL: No joint or muscle swelling or pain. No neck or back pain. SKIN: No rash NEUROLOGIC: +headache; no vertigo, loss of consciousness, or change in strength/sensation. ENDOCRINE: No increased thirst. No abnormal weight change HEMATOLOGIC/LYMPHATIC: No anemia, easy bleeding, or history of blood clots. ALLERGIC/IMMUNOLOGIC: No hives or skin allergy. PE: GENERAL: Awake, alert, and fully oriented, no acute distress HEAD: No signs of trauma, normocephalic, atraumatic EYES: EOMI, sclera anicteric, conjunctiva clear, maxillary sinus ttp ENT: Auricles normal inspection, hearing grossly normal, nares patent, oropharynx clear without exudates. Moist mucosa NECK: Normal ROM, no lymphadenopathy LUNGS: No increased work of breathing, symmetrical chest rise, clear to auscultation bilaterally, no wheezes, crackles or rhonchi HEART: Regular rate, regular rhythm, normal S1 and S2, no murmur, peripheral pulses 2+ and equal bilaterally. ABDOMEN: Soft, nondistended, nontender. No guarding, no rebound. No masses. No CVAT MUSCULOSKELETAL: FROM NEUROLOGICAL: Cranial nerves II through XII grossly intact. Normal speech, stable gait, no focal sensorimotor deficits SKIN: Warm, Dry, normal turgor, no rashes or lesions noted Past History - Medical History Allergies/Adverse Reactions: Allergies Allergy/AdvReac Type Severity Reaction Status Date / Time No Known Allergies Allergy Verified 03/10/20 02:11 Home Medications: Ambulatory Orders Azithromycin [Zithromax Tri-Josue (3 DAYS) -] 500 mg PO DAILY #3 tablet 03/10/20 Fluticasone Prop 0.05% Nasal [Flonase -] 1 - 2 spray NS DAILY #1 spray.pump 03/10/20 - Reproductive History Is Patient Now?: No - Psycho-Social/Smoking History Smoking History: Never smoked Have you smoked in the past 12 months: No Information on smoking cessation initiated: No - Substance Abuse Hx (Audit-C & DAST Scrn) How often the patient has a drink containing alcohol: Never Score: In Men: 4 or > Positive; In Women: 3 or > Positive: 0 Screen Result (Pos requires Nsg. Audit-10AR): Negative In the last yr the pt used illegal drug/Rx for NonMed reason: No Score: Yes response is considered Positive: 0 Screen Result (Positive result requires Nsg. DAST-10): Negative *Physical Exam - Vital Signs Last Vital Signs Temp Pulse Resp BP Pulse Ox 98.4 F 90 20 126/65 97 03/10/20 00:50 03/10/20 00:50 03/10/20 00:50 03/10/20 00:50 03/10/20 00:50 ED Treatment Course - LABORATORY CBC & Chemistry Diagram: 03/10/20 02:40 03/10/20 02:40 Medical Decision Making - Medical Decision Making 03/10/20 05:58 59 y/o F with hx of IDDM, asthma, HTN, HLD, hypothyroid presenting with 20 days of "asthma symptoms." associated with congestion, whinorrhea, cough, sneezing. VSS, AF. PE with amxilarry sinus ttp -ct head, ct sinuus -cbc, cmp -afrin, tylenol 03/10/20 05:59 ct with diffuse sinusitis zpack DC with script for zpack and flonase all Qs answered Discharge - Discharge Information Problems reviewed: Yes Clinical Impression/Diagnosis: Sinusitis Condition: Improved Disposition: HOME - Additional Discharge Information Prescriptions: Fluticasone Prop 0.05% Nasal [Flonase -] 1 - 2 spray NS DAILY #1 spray.pump Azithromycin [Zithromax Tri-Josue (3 DAYS) -] 500 mg PO DAILY #3 tablet - Follow up/Referral Referrals: Nathanael Alonso MD [Primary Care Provider] - - Patient Discharge Instructions Patient Printed Discharge Instructions: Sinusitis (Alternative Therapy), DI for Sinusitis Print Language: ROMANSH - Post Discharge Activity
[2020-03-10] MEDS ORDERED: ACETAMINOPHEN 325 MG TABLET (FP) ONE (02:13)
[2020-03-10] MEDS ORDERED: AZITHROMYCIN IVPB 500 MG/250 ML BAG IVPB ONE (02:46)
[2020-03-10 02:49] LABS: BASO % 0.8 % (0-2.0); EOS % 6.1 % (0-4.5); HEMATOCRIT 35.2 % (32.4-45.2); HEMOGLOBIN 12.4 GM/dL (10.7-15.3); LYMPH % 23.7 % (8-40); MCH 30.6 pg (25.7-33.7); MCHC 35.3 g/dl (32.0-36.0); MEAN CELL VOLUME 86.7 fl (80-96); MEAN PLT VOLUME 8.2 fl (7.5-11.1); MONO % 6.8 % (3.8-10.2); NEUT % 62.6 % (42.8-82.8); PLATELET COUNT 241 K/MM3 (134-434); RBC 4.05 M/mm3 (3.60-5.2); RDW 13.5 % (11.6-15.6); WHITE BLOOD COUNT 6.1 K/mm3 (4.0-10.0)
[2020-03-10 03:13] LABS: POTASSIUM 3.8 mmol/L (3.5-5.1)
[2020-03-10 03:15] LABS: CALCIUM 9.1 mg/dL (8.5-10.1)
[2020-03-10 03:16] LABS: ALBUMIN 3.6 g/dl (3.4-5.0); BLOOD UREA NITROGEN 12.2 mg/dL (7-18)
[2020-03-10 03:19] LABS: CREATININE 0.7 mg/dL (0.55-1.3)
[2020-03-10 03:21] LABS: BILIRUBIN,TOTAL 0.3 mg/dL (0.2-1); TOT PROT 6.9 g/dl (6.4-8.2)
== END 2020-03-10 04:20 | disposition home or self-care (01) ==
LOC: JER 00:38
PROC: 3E033NZ Introduction of Analgesics, Hypnotics, Sedatives into Peripheral Vein, Percutaneous Approach (ICD-10-PCS; principal; 2020-03-10)
DX: J01.90 Acute sinusitis, unspecified (principal)
CPT/HCPCS: 36415; 70450-TC; 70486-TC; 80053; 85025; 99285-25